=== PATIENT | male | born 1960 | race Caucasian/White ===

== ENCOUNTER 2018-11-30 12:04 | Inpatient (IN) | payer OTHER ==
[~2018-11-30] VITALS: Ht 177.8 cm; Wt 89.8 kg
[~2018-11-30 12:04] MED LIST: AUGMENTIN 875875 MG PO; BACTRIM DS TAB1 EACH PO; BACTROBAN CREAM30 G1 TOP; CEPHALEXIN 500500 M3 PO; COZAAR 25 MG TA25 M1 PO; HUMULINR100 SUBQ; HYDROCODONE-AP1 EAC6 PO; LEVEMIR SUBQ; NOVOLOG100 UNIT/M SUBQ; ROCEPHIN 11 GM/1001 IVPB
[2018-11-30 12:08] VITALS: BP 208/92
[2018-11-30] MEDS ORDERED: LISINOPRIL2.5 MG PO (12:15)
[2018-11-30] MEDS ORDERED: TRESIBA100 UNIT/1 SUBQ (12:15)
[2018-11-30 12:35] LABS: ABSOLUTE BASOPHILS 0.1 thou/uL (0.0-0.2); ABSOLUTE LYMPHOCYTES 1.1 thou/uL (0.8-5.3); ABSOLUTE MONOCYTES 0.3 thou/uL (0.0-1.2); ABSOLUTE NEUTROPHILS 4.8 thou/uL (1.6-8.1); BASOPHILS 0.8 %; EOSINOPHILS 0.8 %; HEMATOCRIT 37.8 % (42.0-52.0); HEMOGLOBIN 12.9 gm/dL (14.0-18.0); LYMPHOCYTES 17.1 %; MCH 28.8 pg (26.0-34.0); MCHC 34.1 g/dL (28.0-37.0); MCV 84.4 fL (80.0-100.0); MONOCYTES 4.8 %; MPV 7.5 fl. (7.2-11.1); NUCLEATED RBCS 0 /100WBC; PLATELET COUNT* 284 thou/uL (150-400); POLYS 76.5 %; RBC 4.48 mil/uL (4.50-6.00); RDW-CV 13.1 % (10.5-14.5); WBC 6.2 thou/uL (4.0-11.0)
[2018-11-30 12:43] LABS: CALCIUM 9.3 mg/dL (8.5-10.1); CREATININE 1.4 mg/dL (0.6-1.3); POTASSIUM 4.7 mmol/L (3.5-5.1); PROTIME 9.9 Seconds (9.20-11.50)
[2018-11-30 12:47] LABS: ALBUMIN 3.8 g/dL (3.4-5.0); TOTAL BILIRUBIN 0.4 mg/dL (<0.1-1.0); TOTAL PROTEIN 7.6 g/dL (6.4-8.2)
[2018-11-30] MEDS ORDERED: ASA81BEC PO (13:32)
[2018-11-30] MEDS ORDERED: FISH OIL 1,0001 EAC9 PO (13:32)
[2018-11-30 15:07] VITALS: BP 150/76
[2018-11-30 15:51] LABS: HEMOGLOBIN 12.9 gm/dL (14.0-18.0)
[2018-11-30 16:00] VITALS: BP 159/68
[2018-11-30 19:50] VITALS: BP 176/75
[2018-12-01 00:40] VITALS: BP 176/83
[2018-12-01 04:48] LABS: CHOLESTEROL 162 mg/dL (<200); HDL CHOLESTEROL 53 mg/dL (>40); LDL CHOLESTEROL 91 mg/dL (<100); TC:HDL 3.1 Ratio (Not establshd); TRIGLYCERIDE 91 mg/dL (<150); VLDL 18 mg/dL (<40)
[2018-12-01 04:51] LABS: SERUM ASSESSMENT Clear
[2018-12-01 05:56] VITALS: BP 105/63
--- NOTE | 2018-12-01 06:48 | NUR ---
PT CARE ASSUMED AT 1930. SAT MAINTAINED IN RA. ALERT AND ORIENTED X 4. CALL LIGHT WITHIN REACH AND BED IN LOW POSITION. DENIES PAIN AND SOB. HOURLY ROUNDING DONE FOR PT SAFETY.
[2018-12-01 08:00] VITALS: BP 200/98
[2018-12-01] MEDS ORDERED: NORVASC10 MG PO (11:17)
[2018-12-01] MEDS ORDERED: MICROZIDE12.5 MG PO (11:19)
[2018-12-01] MEDS ORDERED: LIPITOR40 MG PO (11:22)
[2018-12-01 11:30] VITALS: BP 166/81
[2018-12-01] MEDS ORDERED: NEURONTIN300 MG PO (16:50)
[2018-12-01 16:54] VITALS: BP 166/81
[2018-12-01 17:13] LABS: URINE BILIRUBIN NEGATIVE (Negative); URINE BLOOD NEGATIVE (Negative); URINE CLARITY CLEAR; URINE COLOR YELLOW; URINE GLUCOSE-RANDOM 3+ (Negative); URINE KETONES NEGATIVE (Negative); URINE LEUKOCYTES NEGATIVE (Negative); URINE NITRITE NEGATIVE (Negative); URINE PROTEIN NEGATIVE (Negative); URINE UROBILINOGEN 0.2 E.U./dl (0.2-1.0)
--- NOTE | 2018-12-01 17:23 | NUR ---
RECEIVED REPORT FROM LAURE OHARA. ASSUMED CARE OF PT AROUND 0730. PT A&O X4, A BIT ANXIOUS AND READY TO LEAVE THE HOSPITAL. VSS. BP MEDS GIVEN FOR HYPERTENSION. CHILD HEALTH ASSOCIATE IN PLACE TRACING SR WITH NO CHANGES THIS SHIFT. AM ASSESSMENT AND VITALS COMPLETED CHARTED. PT SEEN BY NEUROLOGY - NEUROLOGY CLEARED PT TO GO HOME WITH A F/U IN 1-2 WEEKS. DISCHARGE COMPELTED CHARTED. DISCHARGE SUMMARY, CARE NOTES AND SCRIPTS GONE OVER WITH PT, PT COMMUNICATES UNDERSTANDING. IV AND CHILD HEALTH ASSOCIATE REMOVED. ALL BELONGINGS GATHERED AND LEAVING WITH PT. PT TO LEAVE UNIT IN WC WITH NURSING STAFF. PT TO DRIVE HIMSELF HOME. WILL CONTINUE TO MONITOR PT TILL HE IS READY TO LEAVE THE UNIT.
[2018-12-02 02:05] LABS: GLYCOHEMOGLOBIN (HGB A1C) 10.1 % (4.8-5.6)
--- NOTE | 2018-12-02 16:21 | EKG ---
[place] [address] ELECTROCARDIOGRAM REPORT Name: ROXANNE BENAVIDEZ Room: [address] IN .R.#: [id number] Admission: 11/30/18 Attend Phys: Meme Lazo Discharge: 12/01/18 Date of : 58 Report #: [id number] THIS REPORT FOR: //name// 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
== END 2018-12-01 17:35 | disposition home or self-care (01) | DRG 552 ==
LOC: M.ERS 12:04 → M.TBA-ER 14:07 → M.2W 14:07
PROVIDERS: Emergency Medicine Emergency Medical Services; ADMIT Internal Medicine
DX: M48.02 Spinal stenosis, cervical region (principal); G45.9 Transient cerebral ischemic attack, unspecified; N17.9 Acute kidney failure, unspecified; G99.2 Myelopathy in diseases classified elsewhere; I16.0 Hypertensive urgency; I10 Essential (primary) hypertension; E78.5 Hyperlipidemia, unspecified; I25.10 Atherosclerotic heart disease of native coronary artery without angina pectoris; M54.12 Radiculopathy, cervical region; E11.65 Type 2 diabetes mellitus with hyperglycemia; Z83.3 Family history of diabetes mellitus; Z79.82 Long term (current) use of aspirin; Z79.899 Other long term (current) drug therapy

== ENCOUNTER 2019-03-24 16:14 | Inpatient (IN) | payer OTHER ==
[~2019-03-24] VITALS: Ht 180.3 cm; Wt 106.2 kg
--- NOTE | ~2019-03-24 | OP ---
[address] [address] OPERATIVE REPORT Name: ROXANNE BENAVIDEZ Room: [address] IN M.R.#: [id number] Admission: 03/24/19 Attend Phys: Mason Bull MD Discharge: Date of : 58 Report #: [id number] THIS REPORT FOR: //name// cc: MELBA Rodriguez family physician/PCP MELBA Rodriguez family physician/PCP ~ THIS REPORT FOR: //name// CC: Mason REILLY physician/PCP DATE OF SERVICE: 03/31/2019 SURGEON: Fer Sequeira DPM PREOPERATIVE DIAGNOSIS: Osteomyelitis with deep tissue infection, left second metatarsal. POSTOPERATIVE DIAGNOSIS: Osteomyelitis with deep tissue infection, left second metatarsal. PROCEDURE: Metatarsectomy left second metatarsal in toto, amputation left third toe at MTP joint, and surgical wound debridement. ANESTHESIA: General LMA. INJECTABLES: 30 mL of a 1:1 mixture of 0.5% Marcaine plain and 1% lidocaine plain. ESTIMATED BLOOD LOSS: Roughly 2 mL. SPECIMENS: Left second metatarsal and left third toe. CULTURES: 1. Bone, left distal second metatarsal, aerobic and anaerobic. 2. Soft tissue, left foot, aerobic and anaerobic. HEMOSTASIS: Left ankle pneumatic tourniquet at 275 mmHg. COMPLICATIONS: None. DESCRIPTION OF PROCEDURE: The patient was brought to the OR and a local anesthetic block was given to the left foot. The extremity was prepped and draped aseptically. General LMA anesthesia was administered. The extremity was exsanguinated with inflation of the tourniquet. The second metatarsal was disarticulated at the metatarsocuneiform joint and a portion of bone from the metatarsal head was sent for aerobic and anaerobic bone cultures. The bone to [address] [address] OPERATIVE REPORT Name: ROXANNE BENAVIDEZ Room: [address]#: [id number] Admission: 03/24/19 Attend Phys: Mason Bull MD Discharge: Date of : 58 Report #: [id number] the metatarsal was discolored, soft, and appeared nonviable. The surrounding soft tissue was grossly infected, necrotic with some drops of purulence to the tissue along the plantar aspect of the second metatarsal. The third digit had drops of purulence in the soft tissue surrounding it, which was entirely necrotic. I disarticulated the third toe at the metatarsophalangeal joint and debrided infected tissue around the region including the joint capsule and tissue overlying the third metatarsal. The first metatarsal and first MTP joint were not directly visible, although there is a plantar wound that communicates from the plantar aspect of that joint, which was the original wound that caused the deep tissue infection. I used electrocautery and flushed the wound with 1 liter of sterile saline with bacitracin irrigant. The wound was dried and packed with Aquacel Ag and covered with ABDs, Kerlix, and Larry bandage. The tourniquet was deflated. The patient left the OR with no active bleeding or complications noted. By: 0653 0706Fer Sequeira DPM /freida
--- NOTE | ~2019-03-24 | OP ---
[address] [address] OPERATIVE REPORT Name: ROXANNE BENAVIDEZ Room: [address] IN M.R.#: [id number] Admission: 03/24/19 Attend Phys: Mason Bull MD Discharge: Date of : 58 Report #: [id number] THIS REPORT FOR: //name// cc: MELBA Rodriguez family physician/PCP MELBA Rodriguez family physician/PCP ~ THIS REPORT FOR: //name// CC: Mason REILYL physician/PCP DATE OF SERVICE: 03/25/2019 SURGEON: Fer Sequeira DPM PREOPERATIVE DIAGNOSIS: Deep tissue infection with abscess and possible osteomyelitis, left foot. POSTOPERATIVE DIAGNOSIS: Deep tissue infection with abscess and possible osteomyelitis, left foot. PROCEDURE: 1. Incision and drainage, left foot. 2. Amputation, left second toe at MTP joint. 3. Intraoperative soft tissue debridement of infected wound. ANESTHESIA: General LMA. INJECTABLES: 30 mL of a 1:1 mixture of 0.5% Marcaine plain and 1% lidocaine plain. ESTIMATED BLOOD LOSS: Minimal. HEMOSTASIS: Left ankle pneumatic tourniquet at 275 mmHg. SPECIMENS: Left second toe. CULTURES: Soft tissue, left foot, aerobic and anaerobic. SURGICAL COMPLICATIONS: None. DESCRIPTION OF PROCEDURE: The patient was brought to the OR and placed on the table supine with induction of general LMA anesthesia. A well-padded left ankle pneumatic tourniquet was placed and a local anesthetic block was given to the left foot. The extremity was prepped and draped with exsanguination and inflation of the tourniquet. A #10 scalpel was used to create a dorsal incision over the left first intermetatarsal space extending through the interdigital [address] [address] OPERATIVE REPORT Name: ROXANNE BENAVIDEZ Room: [address] IN [facility]#: [id number] Admission: 03/24/19 Attend Phys: Mason Bull MD Discharge: Date of : 58 Report #: [id number] space to the plantar first intermetatarsal space. Roughly 2 mL of purulent fluid were expressed and the intraoperative wound was grossly necrotic. The tissue surrounding the second metatarsophalangeal joint was severely necrotic and infected and the joint was visible. The articular surface of the second metatarsal was intact with no signs of necrosis or osteolysis. I disarticulated the second toe since it was grossly infected with no healthy tissue at any aspect of the toe or metatarsophalangeal joint. I performed extensive soft tissue debridement of the operative wound to excise subcutaneous soft tissue, fat, tendon and joint capsule material. A logistics service representative portion was sent for aerobic and anaerobic tissue culture. Electrocautery was utilized for intraoperative hemostasis. I did not directly visualize the first MTP joint, as a joint capsule was intact. There was a wound to the plantar aspect of that joint, which communicated to the plantar aspect of the first metatarsophalangeal joint and then tunneled towards the first intermetatarsal space proximally and then laterally along the distal second and third metatarsophalangeal joints. The wound was flushed with sterile saline, dried and open, packed with Aquacel Ag and covered with ABDs, Kerlix and Larry wrap. The tourniquet was deflated with normal vascular return. The patient left the OR with no active bleeding or complications. By: 0757 0809Fer Sequeira DPM /freida
--- NOTE | ~2019-03-24 | CON ---
[address] [address] CONSULTATION Name: ROXANNE BENAVIDEZ Room: [address] IN M.R.#: [id number] Admission: 03/24/19 Attend Phys: Mason Bull MD Discharge: Date of : 58 Report #: [id number] THIS REPORT FOR: //name// cc: MELBA Rodriguez family physician/PCP MELBA Rodriguez family physician/PCP ~ THIS REPORT FOR: //name// CC: Mason Bull [facility] physician/PCP DATE OF SERVICE: 04/01/2019 CHIEF COMPLAINT: Postoperative day #1, for resection, left second metatarsal and third toe for osteomyelitis and deep tissue infection. Surgical pathology is pending. Surgical pathology from the first surgery showed osteomyelitis to the left second toe with a clear disarticulation margin. He is on parenteral Unasyn with the good tolerance. He has been afebrile, good appetite. Low-grade pain, he has remained nonweightbearing to the foot. LABORATORY DATA: WBC of 11.2, RBC 2.81, hemoglobin 8.0, hematocrit 23.8, platelets 642, BUN 32, creatinine 2.2, glucose 158. Albumin of 1.8. PHYSICAL EXAMINATION: Temperature of 100.7, pulse 90, respirations 18, blood pressure of 154/65. PHYSICAL EXAMINATION: There is some sanguinous saturation to the foot bandage. Upon removal of the intraoperative wound, has a red saturated tissue with no gross necrosis. The third metatarsal with no visible lysis or necrosis. The first metatarsophalangeal joint remains covered with the joint capsule tissue. The inflammation substantially decreased and low grade at this point. No pallor, cyanosis, or signs of acute vascular embarrassment. Pinpoint bleeding to the wound bed during the bandage change. IMPRESSION: Osteomyelitis with deep tissue infection, left foot; type 2 diabetes mellitus. PLAN: The wound was irrigated, dried and packed with Aquacel Ag and covered with ABDs, Kerlix, and Larry bandages. The patient to remain strictly nonweightbearing to the foot and elevate. He will require a wound vacuum as outpatient and straighten that and remain nonweightbearing. Possible, he will likely receive his parenteral antibiotics [place] [address] CONSULTATION Name: ROXANNE BENAVIDEZ Room: [address]#: [id number] Admission: 03/24/19 Attend Phys: Mason Bull MD Discharge: Date of : 58 Report #: [id number] Hospital. I can follow up with him in my office as outpatient for wound care or perhaps [facility]. By: 1810 48Fer Sequeira DPM /nt
--- NOTE | ~2019-03-24 | CON ---
[address] [address] CONSULTATION Name: ROXANNE BENAVIDEZ Room: [place] [address] ADM IN M.R.#: [id number] Admission: 03/24/19 Attend Phys: Mason Bull MD Discharge: Date of : 58 Report #: [id number] THIS REPORT FOR: //name// cc: MELBA Rodriguez family physician/PCP MELBA Rodriguez family physician/PCP ~ THIS REPORT FOR: //name// CC: Mason Bull [facility] physician/PCP DATE OF SERVICE: 03/27/2019 CHIEF COMPLAINT: Status post incision and drainage, left foot with second toe amputation for deep tissue infection and likely osteomyelitis. Soft tissue surgical cultures grew Bacteroides and E. coli. Dr. Diamond switched his antibiotics to Unasyn. He has been afebrile, good appetite, denies foot pain. No new labs for review. Surgical pathology shows osteomyelitis of the left second toe with a clear disarticulation margin. PHYSICAL EXAMINATION: Persistent moderate inflammation to the left dorsal foot surrounding the surgical wound. The second metatarsal is visible and is surrounded by fibronecrotic tissue with no healthy granulation or viable tissue. The foot is warm with palpable pedal pulses and no signs of acute vascular embarrassment. I cannot visualize the first or third metatarsals as they are covered with a capsular material. IMPRESSION: Deep tissue infection with likely osteomyelitis, left foot, type 2 diabetes mellitus. PLAN: I discussed with the patient likelihood of performing a second ray resection. Second metatarsal has a yellowish contreras coloration and is likely relatively avascular at this point. I am favoring resecting the second metatarsal at the proximal aspect and further intraoperative wound debridement. I explained to the patient, he may require a transmetatarsal amputation in the future, pending this clinical course. Case was discussed with Dr. Diamond. The wound was cleansed and redressed with sterile gauze, ABDs, Kerlix, and Larry. By: 1211 1259Fer Sequeira DPM /freida
--- NOTE | ~2019-03-24 | CON ---
[address] [address] CONSULTATION Name: ROXANNE BENAVIDEZ Room: [place] [address] ADM IN M.R.#: [id number] Admission: 03/24/19 Attend Phys: Mason Bull MD Discharge: Date of : 58 Report #: [id number] THIS REPORT FOR: //name// cc: MELBA Rodriguez family physician/PCP MELBA Rodriguez family physician/PCP ~ THIS REPORT FOR: //name// CC: Mason Bull [facility] physician/PCP DATE OF SERVICE: 03/26/2019 CHIEF COMPLAINT: Postoperative day #1 for incision and drainage, left foot abscess with second toe amputation. Surgical tissue cultures pending. He is on parenteral vancomycin and ceftriaxone with good tolerance. He feels well, he has been afebrile with no chills and malaise. He says he feels much better today. Minimal pain, although he has profound diabetic sensory peripheral neuropathy. He is scheduled for arterial duplex Doppler later this afternoon. Blood cultures negative x 2. LABORATORY DATA: WBC 14.4, RBC 3.16, hemoglobin 9.0, hematocrit 26.6, platelets 276. BUN 40, creatinine 2.6, glucose 271. PHYSICAL EXAMINATION: Inflammation substantially decreased with no zach erythema to the left foot. The majority of the second metatarsal is exposed with no zach lysis or necrosis. Surrounding soft tissue is spongy with some fibronecrotic tissue, no granulation. There is no fluctuance or crepitation. There is no pallor or cyanosis to the foot, no signs of acute vascular embarrassment. The adjacent first and third metatarsals were covered with capsular tissues and not visible. No left popliteal adenopathy or calf pain. No Homans or Lau sign either lower extremity. IMPRESSION: Deep tissue infection with possible osteomyelitis, left foot, complicated by diabetes mellitus with peripheral neuropathy. PLAN: The wound was thoroughly cleansed and packed with Iodosorb, cadexomer iodine, and covered with 4 x 4s, ABDs, Kerlix and Larry bandage. The patient to remain nonweightbearing to the extremity. He will require a wound vacuum as an outpatient as well as a knee walker for offloading. By: 1627 [id number] Sequeira DPM /freida
--- NOTE | ~2019-03-24 | CON ---
[address] [address] CONSULTATION Name: ROXANNE BENAVIDEZ Room: [place] [address] ADM IN M.R.#: [id number] Admission: 03/24/19 Attend Phys: Mason Bull MD Discharge: Date of : 58 Report #: [id number] THIS REPORT FOR: //name// cc: MELBA Rodriguez family physician/PCP MELBA Rodriguez family physician/PCP ~ THIS REPORT FOR: //name// CC: Mason Bull [facility] physician/PCP DATE OF SERVICE: 03/28/2019 CHIEF COMPLAINT: Postoperative incision and drainage, left foot for deep tissue infection. He is on parenteral vancomycin and ceftriaxone. Surgical soft tissue cultures growing gram-negative rods, gram-positive cocci, gram-positive rods. He has been afebrile with stable vitals. Low-grade pain controlled with medication, good appetite. Blood cultures negative x 2. Arterial duplex Doppler ultrasound showed fairly normal waveforms throughout bilateral lower extremities with no signs of arterial stenosis. LABORATORY DATA: WBC 12.4, RBC 3.10, hemoglobin 8.9, hematocrit 26.3, platelets 287. BUN 46, creatinine 2.9, glucose 176. PHYSICAL EXAMINATION: Decreased inflammation to the postoperative foot with large open wound with fibro-necrotic tissue and exposed second metatarsal. I cannot determine whether the metatarsal is necrotic at this point. There is no healthy granulation to the intraoperative wound bed. There is no pallor, cyanosis or signs of acute arterial embarrassment. The foot is warm with palpable dorsalis pedis and posterior tibial pulses. There is resolving inflammation to the dorsal lateral foot consistent with resolving cellulitis. The adjacent first and third metatarsals are not visible since they are covered with their joint capsule tissue. IMPRESSION: Deep tissue infection, osteomyelitis, type 2 diabetes mellitus. PLAN: The wound was lavaged, dried and redressed with 4 x 4s, ABDs, Kerlix and Larry bandage. The patient will likely require further surgical debridement in the future, but I would like to wait until the infection dissipates and there is improvement to the intraoperative soft tissue wound bed. He will likely require resection of most of the second metatarsal with further subcutaneous wound debridement and perhaps a partial primary closure of the dorsal incision. This would be best accomplished in a week or two [place] [address] CONSULTATION Name: ROXANNE BENAVIDEZ Room: [address] IN [facility]#: [id number] Admission: 03/24/19 Attend Phys: Mason Bull MD Discharge: Date of : 58 Report #: [id number] topical wound care. The patient remained nonweightbearing to the extremity, rest and elevate. Maximize glycemic control and nutrition. By: 0759 0825Dalavern Sequeira DPM /freida
[~2019-03-24 16:14] MED LIST changes: +ASA81BEC PO; +FISH OIL 1,0001 EAC9 PO; +LIPITOR40 MG PO; +LISINOPRIL2.5 MG PO; +MICROZIDE12.5 MG PO; +NEURONTIN300 MG PO; +NORVASC10 MG PO; +TRESIBA100 UNIT/1 SUBQ
[2019-03-24 16:28] VITALS: BP 181/85
[2019-03-24 17:23] LABS: HEMATOCRIT 30.5 % (42.0-52.0); HEMOGLOBIN 10.3 gm/dL (14.0-18.0); MCH 28.4 pg (26.0-34.0); MCHC 33.9 g/dL (28.0-37.0); MCV 83.8 fL (80.0-100.0); MPV 8.1 fl. (7.2-11.1); NUCLEATED RBCS 0 /100WBC; PLATELET COUNT* 304 thou/uL (150-400); RBC 3.64 mil/uL (4.50-6.00); RDW-CV 12.6 % (10.5-14.5); WBC 17.4 thou/uL (4.0-11.0)
[2019-03-24 17:33] LABS: APTT 29.9 Seconds (25.0-31.3); INR 1.1; PROTIME 10.8 Seconds (9.20-11.50)
[2019-03-24 17:38] LABS: CALCIUM 8.6 mg/dL (8.5-10.1); POTASSIUM 4.7 mmol/L (3.5-5.1)
[2019-03-24 17:44] LABS: ALBUMIN 2.8 g/dL (3.4-5.0); TOTAL BILIRUBIN 0.9 mg/dL (<0.1-1.0); TOTAL PROTEIN 7.6 g/dL (6.4-8.2)
[2019-03-24 17:49] LABS: ABSOLUTE LYMPHOCYTES 0.3 thou/uL (0.8-5.3); ABSOLUTE MONOCYTES 0.3 thou/uL (0.0-1.2); ABSOLUTE NEUTROPHILS 16.7 thou/uL (1.6-8.1); PLATELET ESTIMATE ADEQUATE
[2019-03-24 18:37] LABS: CK-MB MASS 1.4 ng/mL (<0.5-3.6); PHOSPHORUS* 2.9 mg/dL (2.5-4.9)
[2019-03-24 21:00] VITALS: BP 139/67
[2019-03-24 21:18] VITALS: BP 136/62
[2019-03-25 00:38] VITALS: BP 140/67
[2019-03-25 04:00] VITALS: BP 137/77
[2019-03-25 04:58] LABS: ABSOLUTE BASOPHILS 0.1 thou/uL (0.0-0.2); ABSOLUTE LYMPHOCYTES 0.8 thou/uL (0.8-5.3); ABSOLUTE MONOCYTES 0.8 thou/uL (0.0-1.2); ABSOLUTE NEUTROPHILS 14.8 thou/uL (1.6-8.1); BASOPHILS 0.4 %; EOSINOPHILS 0.1 %; HEMATOCRIT 27.6 % (42.0-52.0); HEMOGLOBIN 9.3 gm/dL (14.0-18.0); LYMPHOCYTES 4.5 %; MCH 28.2 pg (26.0-34.0); MCHC 33.8 g/dL (28.0-37.0); MCV 83.4 fL (80.0-100.0); MPV 8.3 fl. (7.2-11.1); NUCLEATED RBCS 0 /100WBC; PLATELET COUNT* 292 thou/uL (150-400); RDW-CV 12.5 % (10.5-14.5); WBC 16.5 thou/uL (4.0-11.0)
[2019-03-25 05:38] LABS: CALCIUM 7.6 mg/dL (8.5-10.1); CREATININE 1.8 mg/dL (0.6-1.3); POTASSIUM 4.1 mmol/L (3.5-5.1)
[2019-03-25 08:00] VITALS: BP 117/67
[2019-03-25 11:03] VITALS: BP 151/73
--- NOTE | 2019-03-25 11:37 | EKG ---
[place] [address] ELECTROCARDIOGRAM REPORT Name: ROXANNE BENAVIDEZ Room: [place] [address] ADM IN ..#: [id number] Admission: 03/24/19 Attend Phys: Mason Bull, Discharge: Date of : 58 Date of Service: 03/24/19 1834 Report #: [id number] THIS REPORT FOR: //name// [facility] ED Test Date: 2019-03-24 Test Time: 18:34:33 Pat Name: ROXANNE BENAVIDEZ Department: Room: [facility] Gender: M Carrier Operator: DINORA : 1960 Requested By: Sophia Velez Order Number: [id number] MD: Rick Zafar Measurements Intervals [place] Rate: 109 P: 36 MO: 152 QRS: 33 QRSD: 111 T: 30 QT: 329 QTc: 444 Interpretive Statements Sinus tachycardia Baseline wander in lead(s) V6 Compared to ECG 11/30/2018 12:09:54 Sinus rate has increased Electronically Signed On 03-25-2019 11:36:07 DROP WORKER by Rick Zafar [email or web address] <ELECTRONICALLY SIGNED> By: Rick Zafar MD, [facility] 03/25/19 1136 1834 1834 Rick Zafar MD, [facility] /EPI
[2019-03-25 16:24] VITALS: BP 164/73
--- NOTE | 2019-03-25 19:58 | 2DMMODE ---
[place] [address] 2 D/M-MODE ECHOCARDIOGRAM Name: ROXANNE BENAVIDEZ Room: [facility] ADM IN [facility]#: [id number] Admission: 03/24/19 Attend Phys: Mason Bull, Discharge: Date of : 58 Date of Service: 03/25/[address] Report #: [id number] THIS REPORT FOR: cc: FAM - No family physician/PCP FAM - No family physician/PCP Mikie Kathleen MD [facility] ~ APPROVED REPORT Study performed: 03/25/2019 15:28:52 EXAM: Comprehensive 2D, Doppler, and color-flow Echocardiogram Patient Location: In-Patient Room #: 227 BSA: 2.12 HR: 113 bpm BP: 151/73 mmHg Other Information Study Quality: Good Indications CAD 2D Dimensions IVSd: 10.54 (7-11mm) LVOT Diam: 20.11 (18-24mm) LVDd: 43.54 mm PWd: 10.16 (7-11mm) Ascending Ao: 28.42 (22-36mm) LVDs: 29.25 (25-40mm) Aortic Root: 25.57 mm Volumes Left Atrial Volume (Systole) LA ESV Index: 12.80 mL/m2 Aortic Valve AoV Peak Ke.: 1.53 m/s AO Peak Gr.: 9.41 mmHg LVOT Max P.17 mmHg AO Mean Gr.: 6.08 mmHg LVOT Mean P.18 mmHg LVOT Max V: 1.24 m/s AO V2 VTI: 22.94 cm LVOT Mean V: 0.83 m/s MILEY (VTI): 3.11 cm2 LVOT V1 VTI: 22.43 [place] [address] 2 D/M-MODE ECHOCARDIOGRAM Name: ROXANNE BENAVIDEZ Room: [address] IN .R.#: [id number] Admission: 03/24/19 Attend Phys: Mason Bull, Discharge: Date of : 58 Date of Service: 03/25/191956 Report #: [id number] E/A Ratio: 0.73 MV Decel. Time: 171.97 ms MV E Max Ke.: 0.85 m/s MV PHT: 49.87 ms MVA (PHT): 4.41 cm2 TDI E/Lateral E': 8.50 E/Medial E': 8.50 Medial E' Ke.: 0.10 m/s Lateral E' Ke.: 0.10 m/s Pulmonary Valve PV Peak Ke.: 1.55 m/s PV Peak Gr.: 9.56 mmHg Tricuspid Valve RAP Estimate: 5.00 mmHg TR Peak Gr.: 35.19 mmHg RVSP: 40.19 mmHg PA Pressure: 40.19 mmHg Left Ventricle The left ventricle is normal size. There is normal LV segmental wall motion. There is normal left ventricular wall thickness. Left ventricular systolic function is normal. LVEF is 60-65%. Grade I - abnormal relaxation pattern. Right Ventricle The right ventricle is normal size. The right ventricular systolic function is normal. Atria The left atrium size is normal. The right atrium size is normal. Aortic Valve The aortic valve is normal in structure. No aortic regurgitation is present. There is no aortic valvular stenosis. Mitral Valve The mitral valve is normal in structure. There is no mitral valve regurgitation noted. No evidence of mitral valve stenosis. Tricuspid Valve The tricuspid valve is normal in structure. Mild tricuspid regurgitation. The RVSP is 40-45 [place] [address] 2 D/M-MODE ECHOCARDIOGRAM Name: ROXANNE BENAVIDEZ Room: [address] IN [facility]#: [id number] Admission: 03/24/19 Attend Phys: Mason Bull, Discharge: Date of : 58 Date of Service: 03/25/191956 Report #: [id number] The pulmonary valve is normal in structure. There is no pulmonic valvular regurgitation. Great Vessels The aortic root is normal in size. IVC is normal in size and collapses >50% with inspiration. Pericardium There is no pericardial effusion. <Conclusion> The left ventricle is normal size. There is normal left ventricular wall thickness. Left ventricular systolic function is normal. LVEF is 60-65%. Grade I - abnormal relaxation pattern. Mild tricuspid regurgitation. The RVSP is 40-45 mmHg. IVC is normal in size and collapses >50% with inspiration. <ELECTRONICALLY SIGNED> By: Mikie Kathleen MD, FACC 03/25/191956 56 56 Mikie Kathleen MD, FACC /INF
[2019-03-25 20:00] VITALS: BP 135/56
[2019-03-26] VITALS: BP 107/56
[2019-03-26 04:00] VITALS: BP 124/70
[2019-03-26 06:13] LABS: ABSOLUTE LYMPHOCYTES 0.8 thou/uL (0.8-5.3); ABSOLUTE MONOCYTES 0.8 thou/uL (0.0-1.2); ABSOLUTE NEUTROPHILS 12.8 thou/uL (1.6-8.1); BASOPHILS 0.2 %; HEMATOCRIT 26.6 % (42.0-52.0); LYMPHOCYTES 5.5 %; MCH 28.6 pg (26.0-34.0); MCV 84.2 fL (80.0-100.0); MONOCYTES 5.8 %; MPV 8.2 fl. (7.2-11.1); NUCLEATED RBCS 0 /100WBC; PLATELET COUNT* 276 thou/uL (150-400); POLYS 88.5 %; RBC 3.16 mil/uL (4.50-6.00); WBC 14.4 thou/uL (4.0-11.0)
[2019-03-26 06:23] LABS: ALBUMIN 2.1 g/dL (3.4-5.0); ALKALINE PHOSPHATASE 98 U/L (46-116); ANION GAP 16 mmol/L (7-16); BUN 40 mg/dL (7-18); CALCIUM 7.5 mg/dL (8.5-10.1); CHLORIDE 101 mmol/L (98-107); CHOLESTEROL 70 mg/dL (<200); CO2 17 mmol/L (21-32); CREATININE 2.6 mg/dL (0.6-1.3); GLUCOSE 271 mg/dL (70-99); HDL CHOLESTEROL 11 mg/dL (>40); LDL CHOLESTEROL 29 mg/dL (<100); POTASSIUM 4.1 mmol/L (3.5-5.1); SGOT 21 U/L (15-37); SGPT 20 U/L (30-65); SODIUM 134 mmol/L (136-145); TC:HDL 6.4 Ratio (Not establshd); TOTAL BILIRUBIN 0.3 mg/dL (<0.1-1.0); TOTAL PROTEIN 6.4 g/dL (6.4-8.2); TRIGLYCERIDE 152 mg/dL (<150); VLDL 30 mg/dL (<40)
[2019-03-26 06:33] LABS: SERUM ASSESSMENT Clear
[2019-03-26 08:00] VITALS: BP 110/65
--- NOTE | 2019-03-26 09:13 | CON ---
[address] [address] CONSULTATION Name: ROXANNE BENAVIDEZ Room: [place] [address] ADM IN Meme.Declan.#: [id number] Admission: 03/24/19 Attend Phys: Mason Bull MD Discharge: Date of : 58 Report #: [id number] THIS REPORT FOR: //name// cc: MELBA Rodriguez family physician/PCP MELBA - Jennifer family physician/PCP ~ THIS REPORT FOR: //name// CC: Mason REILLY physician/PCP CARDIOLOGY CONSULTATION INDICATION: Elevated troponin. HISTORY OF PRESENT ILLNESS: The patient is a 58-year-old gentleman with peripheral vascular disease, who presented to the Emergency Room with nonhealing foot ulcer. He has been febrile. He has been treated for sepsis. He is currently on IV antibiotics. He remains moderately febrile. In this setting, his troponin was 0.12. The patient has a history of coronary artery disease with percutaneous coronary intervention in 10/2002 at [facility]. He has had no subsequent intervention. He denies any history of myocardial infarction or congestive heart failure. Presently, he denies shortness of breath. He is not having chest pain. He is without other cardiac complaint. PAST MEDICAL HISTORY: 1. Coronary artery disease with remote percutaneous coronary intervention as outlined above. 2. Hypertension. 3. Type 2 diabetes mellitus. 4. History of patellar fracture in 1985. 5. Rib fracture in 2014. 6. Foot surgery last year. SOCIAL HISTORY: The patient quit smoking remotely. Drinks alcohol twice weekly. He is . FAMILY HISTORY: The patient's father of a heart attack at 48. He has multiple siblings, none of whom have heart disease. ALLERGIES: None. HOME MEDICATIONS: Tresiba 15 units at bedtime, lisinopril 40 mg p.o. daily, aspirin 81 mg daily, fish oil 1000 mg daily, gabapentin 300 mg t.i.d., regular [place] [address] CONSULTATION Name: ROXANNE BENAVIDEZ Room: [address] IN [facility]#: [id number] Admission: 03/24/19 Attend Phys: Mason Bull MD Discharge: Date of : 58 Report #: [id number] REVIEW OF SYSTEMS: A 14-point review of systems is positive for fever, dyspnea, type 2 diabetes and he wears glasses without acute visual change. Otherwise, 14-point review of systems unremarkable. PHYSICAL EXAMINATION: VITAL SIGNS: Blood pressure 117/67, pulse 103. GENERAL: This is a pleasant gentleman in no distress. Mood and affect appropriate. HEENT: Head is normocephalic, atraumatic. Extraocular muscles intact. Mucous membranes are moist. NECK: Shows no jugular venous distention. There are no carotid bruits. CHEST: Reveals clear lung zapata. CARDIOVASCULAR: Reveals a regular rhythm without gallop or murmur. ABDOMEN: Reveals normal bowel sounds. The abdomen is soft and nontender. EXTREMITIES: Shows trace ankle edema. SKIN: Dry. LABORATORY AND DIAGNOSTIC DATA: A 12-lead EKG shows sinus tachycardia without significant ST or T-wave abnormality. Chest x-ray shows no acute cardiopulmonary abnormality. Labs are reviewed. White blood cell count 16.5, hemoglobin 9.3, platelet count 292,000. Coags within normal limits. Sodium 133, potassium 4.1, chloride 100, bicarbonate 18, BUN 34, creatinine 1.8, serum glucose 231. Troponin 0.12. IMPRESSION AND RECOMMENDATIONS: 1. Elevated troponin, likely due to type 2 myocardial infarction with strain from sepsis and febrile illness. Doubt this represents acute coronary syndrome in the absence of any symptoms. Would obtain echocardiogram and follow clinically at this point in time. We would recommend outpatient stress testing. 2. Coronary artery disease. I would recommend daily aspirin. We would recommend risk factor modification including blood pressure control and checking a fasting lipid profile and treating for LDL cholesterol of 70 or less. 3. Hypertension. Blood pressure appears to be adequately controlled presently. We will make adjustments as needed. 4. Foot wound with surgery required. There is no cardiac contraindication to proceeding with surgery at this time. 5. Diabetes per primary physician. <ELECTRONICALLY SIGNED> By: Mikie Kathleen MD, FACC 03/26/19 0913 1428 2319Mikie Kathleen MD, FACC /nt
--- NOTE | 2019-03-26 11:59 | CON ---
[address] [address] CONSULTATION Name: ROXANNE BENAVIDEZ Room: [place] [address] ADM IN M.R.#: [id number] Admission: 03/24/19 Attend Phys: Mason Bull MD Discharge: Date of : 58 Report #: [id number] THIS REPORT FOR: //name// cc: MELBA Rodriguez family physician/PCP MELBA Rodriguez family physician/PCP ~ THIS REPORT FOR: //name// CC: Mason REILLY physician/PCP DATE OF SERVICE: 03/25/2019 INFECTIOUS DISEASE CONSULTATION ATTENDING PHYSICIAN: Mason Bull MD REASON FOR EVALUATION: Left foot plantar ulcer complicated by infection, suspected deep-seated. HISTORY OF PRESENT ILLNESS: Chart reviewed, patient examined. This is a 58-year-old gentleman with known history of diabetes mellitus, has not been well controlled, who states he has had ongoing wound associated with his foot perhaps last several weeks. However, over the course of the last 2 weeks, it had increasingly become uncomfortable. There was associated systemic illness with fevers more recently, but did note some shaking chills as well. He noted he has not eaten in the last 4 days. Blood sugars have been markedly elevated in spite of taking insulin. It is notable that he has some degree of peripheral neuropathy. He has had a previous right second toe amputation due to an osteomyelitis episode involving that digit. Denies significant pulmonary or gastrointestinal related complaints. Started empirically on combination therapy with vancomycin and ceftriaxone. MRI is pending. X-ray did not show evidence of bony changes that would suggest chronic osteomyelitis. ALLERGIES: None known. CURRENT MEDICATIONS: Include amlodipine, fish oil, aspirin, lisinopril, ceftriaxone, vancomycin, pantoprazole, gabapentin, insulin glargine, atorvastatin, enoxaparin, insulin lispro, p.r.n. analgesics. PAST MEDICAL HISTORY: As noted above, diabetes mellitus complicated by peripheral neuropathy, has some vasculopathy with known atherosclerotic coronary artery disease, hypertension, knee amputation, right second toe. SOCIAL HISTORY: Fairly regular ethanol, former smoker. No illicit drug use. FAMILY HISTORY: [place] [address] CONSULTATION Name: ROXANNE BENAVIDEZ Room: [address] IN [facility]#: [id number] Admission: 03/24/19 Attend Phys: Mason Bull MD Discharge: Date of : 58 Report #: [id number] REVIEW OF SYSTEMS: As above, otherwise unremarkable 10-point review of systems. PHYSICAL EXAMINATION: GENERAL: He is alert, cooperative, in mild distress, appears to be reasonably well nourished. VITAL SIGNS: Temperature max 100.3, more recently 99.8, pulse 103, respirations 16, blood pressure 117/67. SKIN: Warm, dry, no rashes. HEENT: Normocephalic. Extraocular muscles intact. NECK: Supple. LUNGS: Generally clear to auscultation. HEART: Regular, tachycardic. I do not appreciate a murmur. ABDOMEN: Mildly distended, soft, nontender. EXTREMITIES: Left lower extremity has a dressing in place. There is clear malodor associated with it. Review of served pictures over the last several days clearly developed some subcutaneous purulence with a draining sinus tract over the site plantar aspect first and second MTP. GENITOURINARY AND RECTAL: Deferred. LABORATORY DATA: Blood cultures sterile thus far. Prealbumin low at 7.6. Electrolytes: Sodium 133, potassium 4.1, chloride 100, bicarbonate is 18, BUN and creatinine 34 and 1.8, anion gap of 15, glucose of 231. It was noted to be 409 on admission with creatinine of 2.0. CBC: White count of 16.5, H and H 9.3 and 27.6, platelets of 292. X-ray showed soft tissue swelling and soft tissue gas consistent with cellulitis. No definite evidence of osteomyelitis. Lactic acid 1.4. Troponin elevated at 0.12. ASSESSMENT AND PLAN: Left foot plantar deep-seated infection, likely abscess. MRI is pending, which ideally would be able to see extent of it. Podiatry has been consulted. I suspect they will need to do some intervention surgically. We will continue empiric therapy with antibiotics. I think the current regimen is reasonable. We will await culture results. Discuss with the patient and family in detail. <ELECTRONICALLY SIGNED> By: Erich Diamond MD 03/26/19 1159 1008 1215Erich Diamond MD /nt
[2019-03-26 12:00] VITALS: BP 130/67
[2019-03-26 16:00] VITALS: BP 140/60
[2019-03-26 19:20] VITALS: BP 123/92
[2019-03-27] VITALS: BP 142/68; BP 148/56
[2019-03-27 04:00] VITALS: BP 137/69
[2019-03-27 08:04] VITALS: BP 141/72
[2019-03-27 11:00] LABS: ABSOLUTE BASOPHILS 0.2 thou/uL (0.0-0.2); ABSOLUTE EOSINOPHILS 0.1 thou/uL (0.0-0.7); ABSOLUTE LYMPHOCYTES 1.5 thou/uL (0.8-5.3); ABSOLUTE MONOCYTES 0.8 thou/uL (0.0-1.2); ABSOLUTE NEUTROPHILS 9.9 thou/uL (1.6-8.1); BASOPHILS 1.2 %; EOSINOPHILS 0.9 %; HEMATOCRIT 26.3 % (42.0-52.0); HEMOGLOBIN 8.9 gm/dL (14.0-18.0); LYMPHOCYTES 11.7 %; MCH 28.7 pg (26.0-34.0); MCHC 33.7 g/dL (28.0-37.0); MCV 85.1 fL (80.0-100.0); MONOCYTES 6.3 %; MPV 9.7 fl. (7.2-11.1); NUCLEATED RBCS 0 /100WBC; PLATELET COUNT* 287 thou/uL (150-400); POLYS 79.9 %; RDW-CV 13.3 % (10.5-14.5); WBC 12.4 thou/uL (4.0-11.0)
[2019-03-27 11:21] LABS: CALCIUM 7.3 mg/dL (8.5-10.1); CREATININE 2.9 mg/dL (0.6-1.3); POTASSIUM 4.2 mmol/L (3.5-5.1); TOTAL BILIRUBIN 0.2 mg/dL (<0.1-1.0); TOTAL PROTEIN 5.5 g/dL (6.4-8.2)
[2019-03-27 12:13] VITALS: BP 139/68
[2019-03-27 17:57] VITALS: BP 131/63
[2019-03-27 20:00] VITALS: BP 124/56
[2019-03-28] VITALS: BP 121/86
[2019-03-28 04:00] VITALS: BP 168/95
[2019-03-28 08:00] VITALS: BP 175/79
[2019-03-28 09:40] LABS: ALBUMIN 2.1 g/dL (3.4-5.0); CALCIUM 7.3 mg/dL (8.5-10.1); CREATININE 2.8 mg/dL (0.6-1.3); POTASSIUM 4.8 mmol/L (3.5-5.1); TOTAL BILIRUBIN 0.4 mg/dL (<0.1-1.0); TOTAL PROTEIN 6.2 g/dL (6.4-8.2)
[2019-03-28 11:47] VITALS: BP 155/68
[2019-03-28 16:01] VITALS: BP 143/60
--- NOTE | 2019-03-28 17:07 | PATH ---
[address] [address] PATHOLOGY RPT PROCEDURE Name: ROXANNE BENAVIDEZ Room: [address] IN M.R.#: [id number] Admission: 03/24/19 Date of : 58 Discharge: Report #: [id number] Path Case #: [id number] LCA Accession Number: [id number] . 01 Material submitted: . toe - LEFT SECOND TOE. Modifiers: left, second . 01 Clinical history: . Abscess left foot . 02 Diagnosis: Left second toe: - Benign toe with extensive acute inflammation and necrosis of soft tissues, and with evidence of osteomyelitis, with disarticulation margin free of osteomyelitis. (YU:steven; 03/28/2019) MBR 03/28/2019 1548 Local . 02 Electronically signed: . Edgar Alarcon MD, Pathologist NPI- [id number] . 01 Gross description: . The specimen is received in formalin, labeled "Roxanne Benavidez, left second toe". Received is an amputated digit measuring 7.3 x 3.2 x 2.8 cm in greatest dimensions. The bone margin is smooth and concave in appearance, consistent with disarticulation. The bone and soft tissue margins are inked black. The soft tissue displays a dusky contreras-downing, slightly necrotic appearance. The nail is present displaying a pale downing and thickened appearance. The epidermal surface is pale downing and wrinkled in appearance with no grossly distinct nodules or lesions. A longitudinal cross-section through the bone margin is submitted in cassette A1, following decalcification. (CAA; 03/26/2019) QAC/QAC 03/28/2019 1547 Local . 02 Pathologist provided ICD-10: L98.9, I96, M86.172 . 02 CPT . 629663, 785775 Specimen Comment: A courtesy copy of this report has been sent to [phone] Specimen Comment: Report sent to Performed at: [address] [place] [id number] MD Samy Smith MD Phone: [phone] Performed at: 02 [place] [address] PATHOLOGY RPT PROCEDURE Name: ROXANNE BENAVIDEZ Room: [place] [address] ADM IN .R.#: [id number] Admission: 03/24/19 Date of : 58 Discharge: Report #: [id number] Path Case #: [id number] [facility] [address], [place] Ramírez [id number] MD Edgar Alarcon MD Phone: [phone]
[2019-03-28 20:00] VITALS: BP 135/56
[2019-03-29] VITALS: BP 149/62
[2019-03-29 03:55] VITALS: BP 146/61
[2019-03-29 08:24] VITALS: BP 160/70
[2019-03-29 16:03] VITALS: BP 153/70
[2019-03-30 08:45] VITALS: BP 158/61
[2019-03-30 14:34] LABS: URINE BILIRUBIN NEGATIVE (Negative); URINE BLOOD NEGATIVE (Negative); URINE CLARITY CLEAR; URINE COLOR YELLOW; URINE GLUCOSE-RANDOM NEGATIVE (Negative); URINE KETONES NEGATIVE (Negative); URINE LEUKOCYTES-REFLEX NEGATIVE (Negative); URINE NITRITE-REFLEX NEGATIVE (Negative); URINE PROTEIN NEGATIVE (Negative); URINE SPECIFIC GRAVITY 1.015 (1.005-1.030); URINE UROBILINOGEN 0.2 E.U./dl (0.2-1.0)
[2019-03-30 16:40] VITALS: BP 151/73
[2019-03-31] VITALS: BP 148/58
[2019-03-31 04:00] VITALS: BP 164/80
[2019-03-31 04:52] LABS: HEMATOCRIT 25.1 % (42.0-52.0); HEMOGLOBIN 8.5 gm/dL (14.0-18.0); MCH 28.5 pg (26.0-34.0); MCHC 33.9 g/dL (28.0-37.0); MPV 8.1 fl. (7.2-11.1); RBC 2.99 mil/uL (4.50-6.00); RDW-CV 13.2 % (10.5-14.5); WBC 10.7 thou/uL (4.0-11.0)
[2019-03-31 04:58] LABS: CALCIUM 7.9 mg/dL (8.5-10.1); CREATININE 2.3 mg/dL (0.6-1.3); MAGNESIUM 2.2 mg/dL (1.8-2.4)
[2019-03-31 09:00] VITALS: BP 160/71
[2019-03-31 15:00] VITALS: BP 163/80
[2019-03-31 19:45] VITALS: BP 164/74
[2019-04-01] VITALS: BP 154/97
[2019-04-01 03:56] VITALS: BP 158/59
[2019-04-01 05:05] LABS: HEMATOCRIT 23.8 % (42.0-52.0); MCH 28.5 pg (26.0-34.0); MCHC 33.7 g/dL (28.0-37.0); MCV 84.7 fL (80.0-100.0); MPV 8.1 fl. (7.2-11.1); RBC 2.81 mil/uL (4.50-6.00); RDW-CV 12.8 % (10.5-14.5); WBC 11.2 thou/uL (4.0-11.0)
[2019-04-01 05:41] LABS: ALBUMIN 1.8 g/dL (3.4-5.0); CALCIUM 7.6 mg/dL (8.5-10.1); CREATININE 2.2 mg/dL (0.6-1.3); POTASSIUM 4.7 mmol/L (3.5-5.1); TOTAL BILIRUBIN 0.3 mg/dL (<0.1-1.0); TOTAL PROTEIN 6.5 g/dL (6.4-8.2)
[2019-04-01 08:00] VITALS: BP 154/65
[2019-04-01 16:00] VITALS: BP 164/52
[2019-04-01 21:20] VITALS: BP 163/69
[2019-04-02 06:28] LABS: HEMATOCRIT 27.7 % (42.0-52.0); HEMOGLOBIN 9.5 gm/dL (14.0-18.0); MCH 28.9 pg (26.0-34.0); MCHC 34.2 g/dL (28.0-37.0); MCV 84.3 fL (80.0-100.0); MPV 7.7 fl. (7.2-11.1); NUCLEATED RBCS 0 /100WBC; RBC 3.29 mil/uL (4.50-6.00); RDW-CV 13.2 % (10.5-14.5)
[2019-04-02 06:35] LABS: PLATELET COUNT* 519 thou/uL (150-400)
[2019-04-02 06:45] LABS: ALBUMIN 1.7 g/dL (3.4-5.0); CALCIUM 7.7 mg/dL (8.5-10.1); CREATININE 2.3 mg/dL (0.6-1.3); MAGNESIUM 2.2 mg/dL (1.8-2.4); PHOSPHORUS* 4.6 mg/dL (2.5-4.9); POTASSIUM 4.4 mmol/L (3.5-5.1); TOTAL BILIRUBIN 0.2 mg/dL (<0.1-1.0); TOTAL PROTEIN 6.2 g/dL (6.4-8.2); URIC ACID* 6.2 mg/dL (2.6-7.2)
[2019-04-02 07:11] LABS: ABSOLUTE EOSINOPHILS 0.2 thou/uL (0.0-0.7); ABSOLUTE LYMPHOCYTES 1.3 thou/uL (0.8-5.3); ABSOLUTE MONOCYTES 0.3 thou/uL (0.0-1.2); ABSOLUTE NEUTROPHILS 6.2 thou/uL (1.6-8.1)
[2019-04-02 07:12] LABS: ANISOCYTOSIS 1+; LARGE PLATELETS OCCASIONAL; PLATELET ESTIMATE INCREASED; POIKILOCYTOSIS 1+
[2019-04-02 16:33] VITALS: BP 159/70
[2019-04-02 21:20] VITALS: BP 149/64
[2019-04-03 05:56] LABS: HEMATOCRIT 21.2 % (42.0-52.0); MCH 28.9 pg (26.0-34.0); MPV 7.8 fl. (7.2-11.1); RBC 2.5 mil/uL (4.50-6.00); WBC 9.7 thou/uL (4.0-11.0)
[2019-04-03 06:11] LABS: ALBUMIN 1.6 g/dL (3.4-5.0); CALCIUM 7.9 mg/dL (8.5-10.1); CREATININE 2.1 mg/dL (0.6-1.3); MAGNESIUM 2.4 mg/dL (1.8-2.4); POTASSIUM 4.4 mmol/L (3.5-5.1); TOTAL BILIRUBIN 0.2 mg/dL (<0.1-1.0); TOTAL PROTEIN 5.9 g/dL (6.4-8.2)
[2019-04-03 06:15] LABS: HEMOGLOBIN 7.2 gm/dL (14.0-18.0)
[2019-04-03 07:30] VITALS: BP 155/72
--- NOTE | 2019-04-03 09:24 | CON ---
[address] [address] CONSULTATION Name: ROXANNE BENAVIDEZ Room: [address] IN .R.#: [id number] Admission: 03/24/19 Attend Phys: Mason Bull MD Discharge: Date of : 58 Report #: [id number] THIS REPORT FOR: //name// cc: MELBA Rodriguez family physician/PCP MELBA Rodriguez family physician/PCP ~ THIS REPORT FOR: //name// CC: Mason REILLY physician/PCP DATE OF SERVICE: 03/31/2019 REQUESTING PHYSICIAN: Mason Bull MD REASON FOR CONSULTATION: Assist in controlling his blood pressure and follow on his renal insufficiency. HISTORY OF PRESENT ILLNESS: The patient is a 58-year-old male with medical history significant for peripheral artery disease, diabetes mellitus type 2, coronary artery disease, chronic kidney disease stage 3, presents with nonhealing diabetic foot. He has a left foot with chronic infection and was treated with antibiotics, but then today he is going to go to the surgery and they will do some debridement as necessary procedures. 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 His creatinine on admission was 2.0 and went up as high as 2.9, is down to 2.3 now. Baseline creatinine probably around 1.4-1.5. He also had a myocardial infarction during this admission and Cardiology was on the case. His blood pressure is not optimally controlled. Blood pressure in 160s-170s/70-80. PAST MEDICAL HISTORY: As I mentioned earlier. SOCIAL HISTORY: No alcohol abuse. He never smoked. MEDICATIONS: Reviewed. From my standpoint, he is on lisinopril 40 mg a day, amlodipine 10 mg a day. REVIEW OF SYSTEMS: Positive for this problem with his left foot nonhealing ulcer. Otherwise, he does not have any chest pain, no shortness of breath, no fever, no chills. He does have some pollakiuria and nocturia. He had a renal ultrasound done, which was unremarkable. [place] [address] CONSULTATION Name: ROXANNE BENAVIDEZ Room: [address]#: [id number] Admission: 03/24/19 Attend Phys: Mason Bull MD Discharge: Date of : 58 Report #: [id number] 03/24 was also unremarkable. PHYSICAL EXAMINATION: GENERAL: Awake, alert, oriented. VITAL SIGNS: Blood pressure 160/70, heart rate 84. He is afebrile. HEENT: Pupils are round. NECK: Supple. LUNGS: Clear. CARDIOVASCULAR: Regular rate. ABDOMEN: Soft. EXTREMITIES: Lower extremities, his left foot is swollen and dressed. ASSESSMENT: 1. Acute kidney injury, which is resolving now, probably due to his infection. 2. Chronic kidney disease stage 3. 3. Uncontrolled hypertension. 4. Coronary artery disease. 5. Diabetes mellitus type 2. PLAN: I will add Coreg 6.25 mg twice a day. Follow his labs and then he will need to follow with us after discharge. <ELECTRONICALLY SIGNED> By: Prince Zamora MD 04/03/19 0924 1238 1248Alexdane Zamora MD /nt
[2019-04-03 10:12] LABS: HEPATITIS B SURFACE AG Negative (Negative)
[2019-04-03 14:12] LABS: URINE PROTEIN (MG/DL) 22.4 mg/dL (Not Estab.)
[2019-04-03 14:12] LABS: GLOBULIN TOTAL 3.6 g/dL (2.2-3.9); M-SPIKE Not Observed g/dL (Not Observed)
[2019-04-03] MEDS ORDERED: HUMULIN N100 UNIT/1 SUBQ (15:43)
[2019-04-03] MEDS ORDERED: COREG6.25 MG PO (15:43)
[2019-04-03 16:05] VITALS: BP 145/79
[2019-04-03 16:29] VITALS: BP 145/79
[2019-04-03 17:23] VITALS: BP 145/79
[2019-04-03 19:35] VITALS: BP 145/79
--- NOTE | 2019-04-04 16:07 | PATH ---
[address] [address] PATHOLOGY RPT PROCEDURE Name: ROXANNE BENAVIDEZ Room: [address] IN M.R.#: [id number] Admission: 03/24/19 Date of : 58 Discharge: 04/03/19 Report #: [id number] Path Case #: [id number] LCA Accession Number: [id number] . 01 Material submitted: . toe - LEFT SECOND METATARSAL/LEFT THIRD TOE. Modifiers: left, second, third . 01 Clinical history: . Osteomyelitis left second metatarsal . 02 Diagnosis: Left second metatarsal, left third toe: - Left third toe: Benign toe with extensive necrosis and acute inflammation of soft tissues (at surgical margin) and with osteomyelitis, with disarticulation margin free of osteomyelitis. See comment. . - Left second metatarsal: Two benign osteocartilaginous segments with shorter segment showing no osteomyelitis and longer segment having attached acutely inflamed soft tissues with medial calcification of blood vessels and osteomyelitis from articular end to very close but no definite involvement of opposite transection edge with osteomyelitis. (YU:pit 04/04/2019) QTP 04/04/2019 1535 Local . 02 Comment: The grossly described "blue-contreras lesion" seen adjacent to the left third toenail represents a benign hemorrhagic inflammatory crust. (YU:[facility] 04/04/2019) . 02 Electronically signed: . Edgar Alarcon MD, Pathologist NPI- [id number] . 01 Gross description: . The specimen is received in formalin, labeled "Roxanne Benavidez, left second metatarsal, left third toe". Received is an amputated digit measuring 6.1 x 3.0 x 2.1 cm in greatest dimensions. The bone margin is smooth and concave in appearance, consistent with disarticulation. The bone and soft tissue margins are inked black. The epidermal surface displays a dusky contreras-black necrotic-appearing area at the skin margin measuring 3.2 x 0.7 cm. The nail is present displaying a light downing and thickened appearance. At the distal aspect of the specimen adjacent to the nail, there is a well-circumscribed, slightly raised and blue-contreras lesion measuring 0.3 x 0.3 cm. A full length longitudinal cross-section is submitted from proximal to distal aspects in cassettes A1 through A3, [place] [address] PATHOLOGY RPT PROCEDURE Name: ROXANNE BENAVIDEZ Room: [address] IN .R.#: [id number] Admission: 03/24/19 Date of : 58 Discharge: 04/03/19 Report #: [id number] Path Case #: [id number] Also received within the specimen container are two additional segments of bone measuring 3.1 x 2.6 x 1.9 and 5.7 x 2.1 x 1.7 cm in greatest dimensions. The smaller segment displays one blunt, transected margin and one smooth, disarticulated margin. The disarticulated margin is inked black. The larger segment displays one blunt, transected margin and one smooth, disarticulated to jagged margin. The transected margin on this segment is inked blue. The specimen is submitted player services representative as follows: . A4-A5 full-thickness longitudinal cross-section of smaller segment, submitted from disarticulated to transected aspects, following decalcification A6-A8 full-thickness longitudinal cross-section of larger segment submitted from transected to disarticulated aspects, following decalcification. (CAA; 04/01/2019) QAC/QAC 04/01/2019 1633 Local . 02 Pathologist provided ICD-10: M86.8X7, I96 . 02 CPT . 921855, 483664, 952694 Specimen Comment: A courtesy copy of this report has been sent to [phone] Specimen Comment: [phone] Specimen Comment: Report sent to / DR BRO Performed at: 01 [facility] [address], [place], [place] [id number] MD Samy Smith MD Phone: [phone] Performed at: 02 [facility] [address], [place], [place] [id number] MD Edgar Alarcon MD Phone: [phone]
== END 2019-04-03 18:45 | disposition home or self-care (01) | DRG 853 ==
LOC: M.ERS 16:14 → M.TBA-ER 18:47 → M.2W 18:47 → M.ORTHSURG 03-29 18:13
PROVIDERS: Internal Medicine; Internal Medicine Nephrology; Nurse Practitioner Family; Specialist; ADMIT Internal Medicine
PROC: 0Y6S0Z0 Detachment at Left 2nd Toe, Complete, Open Approach (ICD-10-PCS; principal; 2019-03-25)
PROC: 05HY33Z Insertion of Infusion Device into Upper Vein, Percutaneous Approach (ICD-10-PCS; 2019-03-28)
PROC: B54NZZA Ultrasonography of Left Upper Extremity Veins, Guidance (ICD-10-PCS; 2019-03-28)
PROC: 0Y6N0Z5 Detachment at Left Foot, Complete 2nd Ray, Open Approach (ICD-10-PCS; 2019-03-31)
PROC: 0Y6U0Z0 Detachment at Left 3rd Toe, Complete, Open Approach (ICD-10-PCS; 2019-03-31)
DX: A41.9 Sepsis, unspecified organism (principal); I21.A1 Myocardial infarction type 2; N17.9 Acute kidney failure, unspecified; M86.8X7 Other osteomyelitis, ankle and foot; L03.116 Cellulitis of left lower limb; I13.0 Hypertensive heart and chronic kidney disease with heart failure and stage 1 through stage 4 chronic kidney disease, or unspecified chronic kidney disease; I50.32 Chronic diastolic (congestive) heart failure; I25.10 Atherosclerotic heart disease of native coronary artery without angina pectoris; R65.20 Severe sepsis without septic shock; E11.42 Type 2 diabetes mellitus with diabetic polyneuropathy; E11.69 Type 2 diabetes mellitus with other specified complication; E11.51 Type 2 diabetes mellitus with diabetic peripheral angiopathy without gangrene; N18.3 Chronic kidney disease, stage 3 (moderate); E11.22 Type 2 diabetes mellitus with diabetic chronic kidney disease; E11.621 Type 2 diabetes mellitus with foot ulcer; L97.529 Non-pressure chronic ulcer of other part of left foot with unspecified severity; E78.5 Hyperlipidemia, unspecified; E11.65 Type 2 diabetes mellitus with hyperglycemia; Z79.899 Other long term (current) drug therapy; Z79.82 Long term (current) use of aspirin; Z79.4 Long term (current) use of insulin; Z87.891 Personal history of nicotine dependence; Z63.5 Disruption of family by separation and divorce; Z82.49 Family history of ischemic heart disease and other diseases of the circulatory system; Z89.421 Acquired absence of other right toe(s); I25.2 Old myocardial infarction; Z83.3 Family history of diabetes mellitus

== ENCOUNTER 2019-04-04 11:35 | Inpatient (IN) | payer OTHER ==
[~2019-04-04] VITALS: Ht 180.3 cm; Wt 106.6 kg
[~2019-04-04 11:35] MED LIST changes: +COREG6.25 MG PO; +HUMULIN N100 UNIT/1 SUBQ
[2019-04-04 11:42] VITALS: BP 173/87
[2019-04-04 12:16] LABS: BE -4.8 mmol/L (-2 to +3); PCO2 29.8 mmHg (35.0-45.0)
[2019-04-04 12:18] LABS: ABSOLUTE EOSINOPHILS 0.2 thou/uL (0.0-0.7); ABSOLUTE LYMPHOCYTES 1.3 thou/uL (0.8-5.3); ABSOLUTE MONOCYTES 0.6 thou/uL (0.0-1.2); ABSOLUTE NEUTROPHILS 11.4 thou/uL (1.6-8.1); BASOPHILS 0.2 %; EOSINOPHILS 1.7 %; HEMATOCRIT 24.2 % (42.0-52.0); HEMOGLOBIN 7.9 gm/dL (14.0-18.0); LYMPHOCYTES 9.9 %; MCH 28.2 pg (26.0-34.0); MCHC 32.8 g/dL (28.0-37.0); MONOCYTES 4.6 %; MPV 7.4 fl. (7.2-11.1); NUCLEATED RBCS 0 /100WBC; POLYS 83.6 %; RBC 2.82 mil/uL (4.50-6.00); RDW-CV 13.1 % (10.5-14.5); WBC 13.6 thou/uL (4.0-11.0)
[2019-04-04 12:18] LABS: PO2 41.6 mmHg (75.0-100.0)
[2019-04-04 12:20] LABS: INFLUENZA A ANTIGEN Negative (Negative); INFLUENZA B ANTIGEN Negative (Negative)
[2019-04-04 12:20] LABS: PLATELET COUNT* 779 thou/uL (150-400)
[2019-04-04 12:29] LABS: CALCIUM 8.2 mg/dL (8.5-10.1); POTASSIUM 4.8 mmol/L (3.5-5.1)
[2019-04-04 12:39] LABS: ALBUMIN 1.9 g/dL (3.4-5.0); TOTAL BILIRUBIN 0.2 mg/dL (<0.1-1.0); TOTAL PROTEIN 6.9 g/dL (6.4-8.2)
[2019-04-04 14:58] LABS: URINE BILIRUBIN NEGATIVE (Negative); URINE BLOOD TRACE (Negative); URINE CLARITY CLEAR; URINE COLOR YELLOW; URINE GLUCOSE-RANDOM NEGATIVE (Negative); URINE KETONES NEGATIVE (Negative); URINE LEUKOCYTES-REFLEX NEGATIVE (Negative); URINE NITRITE-REFLEX NEGATIVE (Negative); URINE PROTEIN NEGATIVE (Negative); URINE UROBILINOGEN 0.2 E.U./dl (0.2-1.0)
--- NOTE | 2019-04-04 16:29 | 2DMMODE ---
[facility] [place] [address] 2 D/M-MODE ECHOCARDIOGRAM Name: REEMAROXANNE E Room: [place] [address] ADM IN .R.#: [id number] Admission: 04/04/19 Attend Phys: James Tapia, Discharge: Date of : 58 Date of Service: 04/04/19 1627 Report #: [id number] THIS REPORT FOR: cc: Samy Luis Russell J. DO Liston, Michael J. MD [facility] ~ APPROVED REPORT Study performed: 04/04/2019 15:38:49 EXAM: Limited 2D Echocardiogram Patient Location: In-Patient Room #: er BSA: 2.11 HR: 97 bpm BP: 161/69 mmHg Rhythm: NSR Other Information Study Quality: Good Indications Dyspnea Left Ventricle The left ventricle is normal size. There is normal LV segmental wall motion. There is normal left ventricular wall thickness. The left ventricular systolic function is normal. LVEF is 60-65%. Right Ventricle The right ventricle is normal size. The right ventricular systolic function is normal. Atria The left atrium size is normal. The right atrium size is normal. Aortic Valve The aortic valve is normal in structure. Mitral Valve The mitral valve is normal in structure. Tricuspid Valve [address] [address] 2 D/M-MODE ECHOCARDIOGRAM Name: ROXANNE BENAVIDEZ Room: [place] [address] ADM IN M.R.#: [id number] Admission: 04/04/19 Attend Phys: James Tapia, Discharge: Date of : 58 Date of Service: 04/04/19 1627 Report #: [id number] The tricuspid valve is normal in structure. Pulmonic Valve The pulmonary valve is normal in structure. Great Vessels The aortic root is normal in size. IVC is normal in size and collapses >50% with inspiration. Pericardium There is no pericardial effusion. <Conclusion> The left ventricle is normal size. There is normal left ventricular wall thickness. The left ventricular systolic function is normal. LVEF is 60-65%. IVC is normal in size and collapses >50% with inspiration. There is no pericardial effusion. <ELECTRONICALLY SIGNED> By: Mikie Kathleen MD, FACC 04/04/19 1627 26 26 Mikie Kathleen MD, FACC /INF
[2019-04-04 16:32] VITALS: BP 150/80
[2019-04-04 17:02] VITALS: BP 177/75
[2019-04-04 20:10] VITALS: BP 143/88
[2019-04-04 23:56] VITALS: BP 147/76
[2019-04-05] VITALS (7 sets, daily range): BP systolic 120–175; BP diastolic 56–84
[2019-04-05 06:59] LABS: HEMATOCRIT 22.9 % (42.0-52.0); HEMOGLOBIN 7.5 gm/dL (14.0-18.0); MCH 27.9 pg (26.0-34.0); MCHC 32.9 g/dL (28.0-37.0); MCV 84.8 fL (80.0-100.0); MPV 7.9 fl. (7.2-11.1); RBC 2.7 mil/uL (4.50-6.00); RDW-CV 13.3 % (10.5-14.5)
[2019-04-05 07:06] LABS: CREATININE 2.1 mg/dL (0.6-1.3); POTASSIUM 4.9 mmol/L (3.5-5.1)
[2019-04-06 08:30] VITALS: BP 160/71
[2019-04-06 12:23] LABS: ABSOLUTE BASOPHILS 0.1 thou/uL (0.0-0.2); ABSOLUTE EOSINOPHILS 0.2 thou/uL (0.0-0.7); ABSOLUTE LYMPHOCYTES 1.1 thou/uL (0.8-5.3); ABSOLUTE MONOCYTES 0.5 thou/uL (0.0-1.2); ABSOLUTE NEUTROPHILS 9.4 thou/uL (1.6-8.1); BASOPHILS 1.1 %; HEMATOCRIT 21.7 % (42.0-52.0); HEMOGLOBIN 7.1 gm/dL (14.0-18.0); LYMPHOCYTES 9.8 %; MCH 27.9 pg (26.0-34.0); MCHC 32.8 g/dL (28.0-37.0); MCV 85.1 fL (80.0-100.0); MONOCYTES 4.8 %; MPV 7.9 fl. (7.2-11.1); NUCLEATED RBCS 0 /100WBC; POLYS 82.3 %; RBC 2.54 mil/uL (4.50-6.00); RDW-CV 13.1 % (10.5-14.5); WBC 11.4 thou/uL (4.0-11.0)
[2019-04-06 12:31] LABS: PLATELET COUNT* 609 thou/uL (150-400)
[2019-04-06 15:01] VITALS: BP 133/67
[2019-04-06 17:00] VITALS: BP 137/65
[2019-04-06 20:30] VITALS: BP 143/61
[2019-04-07 00:54] VITALS: BP 144/70
[2019-04-07 06:21] LABS: HEMATOCRIT 20.7 % (42.0-52.0); MCHC 33.2 g/dL (28.0-37.0); MCV 84.5 fL (80.0-100.0); MPV 7.7 fl. (7.2-11.1); RBC 2.45 mil/uL (4.50-6.00); RDW-CV 13.2 % (10.5-14.5)
[2019-04-07 06:24] LABS: HEMOGLOBIN 6.9 gm/dL (14.0-18.0)
[2019-04-07 06:28] LABS: CALCIUM 7.7 mg/dL (8.5-10.1); CREATININE 2.4 mg/dL (0.6-1.3); MAGNESIUM 2.2 mg/dL (1.8-2.4); POTASSIUM 4.5 mmol/L (3.5-5.1)
[2019-04-07 08:15] VITALS: BP 149/67
[2019-04-07 08:53] VITALS: BP 152/74; BP 155/75; BP 162/76; BP 184/86
[2019-04-07 15:25] VITALS: BP 152/72
[2019-04-07 16:00] VITALS: BP 160/74
[2019-04-07 18:34] LABS: HEMATOCRIT 25.4 % (42.0-52.0); HEMOGLOBIN 8.5 gm/dL (14.0-18.0)
[2019-04-07 20:30] VITALS: BP 157/71
[2019-04-08 06:49] LABS: HEMATOCRIT 23.8 % (42.0-52.0); HEMOGLOBIN 7.9 gm/dL (14.0-18.0); MCH 27.6 pg (26.0-34.0); MCHC 33.1 g/dL (28.0-37.0); MCV 83.4 fL (80.0-100.0); RBC 2.86 mil/uL (4.50-6.00); RDW-CV 13.2 % (10.5-14.5); WBC 11.8 thou/uL (4.0-11.0)
[2019-04-08 07:16] LABS: CREATININE 2.1 mg/dL (0.6-1.3); POTASSIUM 3.9 mmol/L (3.5-5.1)
[2019-04-08 07:45] VITALS: BP 160/61
[2019-04-08 15:45] VITALS: BP 118/67
[2019-04-08 19:20] VITALS: BP 142/60
[2019-04-09 03:33] LABS: HEMATOCRIT 23.7 % (42.0-52.0); MCH 28.2 pg (26.0-34.0); MCHC 33.6 g/dL (28.0-37.0); MCV 83.7 fL (80.0-100.0); MPV 7.9 fl. (7.2-11.1); RBC 2.83 mil/uL (4.50-6.00); RDW-CV 13.2 % (10.5-14.5); WBC 8.3 thou/uL (4.0-11.0)
[2019-04-09 03:50] LABS: CALCIUM 7.9 mg/dL (8.5-10.1); CREATININE 2.1 mg/dL (0.6-1.3); MAGNESIUM 1.7 mg/dL (1.8-2.4); POTASSIUM 3.7 mmol/L (3.5-5.1)
[2019-04-09 07:20] VITALS: BP 154/73
--- NOTE | 2019-04-09 13:43 | CON ---
[address] [address] CONSULTATION Name: ROXANNE BENAVIDEZ Room: [address] IN .R.#: [id number] Admission: 04/04/19 Attend Phys: James Tapia MD Discharge: Date of : 58 Report #: [id number] THIS REPORT FOR: //name// cc: Samy Luis Russell J. DO ~ THIS REPORT FOR: //name// CC: James Luis DATE OF SERVICE: 04/08/2019 CHIEF COMPLAINT: Postoperative left foot for resection, left second metatarsal for osteomyelitis, readmitted for pneumonia. He received blood transfusion yesterday. Denies pain to the foot. Currently nauseous with dry heaves. He has been afebrile. He is on parenteral cefepime and Flagyl. LABORATORY DATA: WBC 11.8, RBC 2.86, hemoglobin 7.9, hematocrit 23.8 and platelets 556. BUN 28, creatinine 2.1 and glucose 169. PHYSICAL EXAMINATION: EXTREMITIES: Left foot has no inflammation or signs of cellulitis. The wound has sparse granulation with some fibrous slough. The foot is warm with no pallor, cyanosis or signs of acute vascular embarrassment; overall improved. IMPRESSION: Osteomyelitis, deep tissue infection, type 2 diabetes mellitus, pneumonia. PLAN: I cleansed the wound and repacked with Aquacel Ag and covered with ABDs, Kerlix and Larry bandage. We will inquire about placing a wound VAC during his hospitalization here to facilitate granulation. <ELECTRONICALLY SIGNED> By: Fer Sequeira DPM 04/09/19 1343 0743 0751Disabel Sequeira DPM /nt
[2019-04-09 16:00] VITALS: BP 130/52
[2019-04-09 20:00] VITALS: BP 150/68
[2019-04-10 05:30] LABS: CALCIUM 8.2 mg/dL (8.5-10.1); MAGNESIUM 1.8 mg/dL (1.8-2.4); POTASSIUM 3.7 mmol/L (3.5-5.1)
[2019-04-10 09:00] VITALS: BP 152/72
[2019-04-10] MEDS ORDERED: CARVEDILOL12.5 MG PO (10:00)
[2019-04-10] MEDS ORDERED: LASIX 40 MG TAB40 M1 PO (10:00)
[2019-04-10] MEDS ORDERED: NOVOLIN N100 UNIT/3 SUBQ (10:00)
[2019-04-10 11:19] VITALS: BP 152/72
[2019-04-10 15:38] VITALS: BP 152/72
[2019-04-10] MEDS ORDERED: CEFTRIAXONE2 G1 IVPB (15:40)
--- NOTE | 2019-04-11 14:58 | EKG ---
[place] [address] ELECTROCARDIOGRAM REPORT Name: ROXANNE BENAVIDEZ Room: [address] IN [facility]#: [id number] Admission: 04/04/19 Attend Phys: James Tapia, Discharge: 04/10/19 Date of : 58 Date of Service: 04/04/19 1201 Report #: [id number] THIS REPORT FOR: //name// [facility] ED Test Date: 2019-04-04 Test Time: 12:01:14 Pat Name: ROXANNEHUGH BENAVIDEZ Department: Room: [facility] Gender: M Maid Housekeeper: RICARDO : 1960 Requested By: Maggy Fernandes Order Number: [id number] MD: Benoit Swain Measurements Intervals [place] Rate: 98 P: 38 DE: 159 QRS: 30 QRSD: 91 T: 12 QT: 339 QTc: 433 Interpretive Statements Sinus rhythm Probable left atrial enlargement Baseline wander in lead(s) II,III,aVF Compared to ECG 03/24/2019 18:34:33 Sinus tachycardia no longer present Electronically Signed On 04-05-2019 12:50:53 [employer]ANSFORMER [employer] by Benoit Swain [email or web address] <ELECTRONICALLY SIGNED> By: Benoit Swain MD, FACC 04/05/19 1250 1201 1201 Benoit Swain MD, FAC /EPI
== END 2019-04-10 16:45 | disposition home or self-care (01) | DRG 871 ==
LOC: M.ERS 11:35 → M.TBA-ER 12:51 → M.2W 12:51 → M.3W 04-07 08:16
PROVIDERS: Physician Assistant; ADMIT Internal Medicine
PROC: 02H633Z Insertion of Infusion Device into Right Atrium, Percutaneous Approach (ICD-10-PCS; principal; 2019-04-04)
PROC: 30233N1 Transfusion of Nonautologous Red Blood Cells into Peripheral Vein, Percutaneous Approach (ICD-10-PCS; 2019-04-07)
DX: A41.9 Sepsis, unspecified organism (principal); J96.01 Acute respiratory failure with hypoxia; E43 Unspecified severe protein-calorie malnutrition; J15.6 Pneumonia due to other Gram-negative bacteria; M86.8X8 Other osteomyelitis, other site; D62 Acute posthemorrhagic anemia; I25.10 Atherosclerotic heart disease of native coronary artery without angina pectoris; N18.3 Chronic kidney disease, stage 3 (moderate); E11.621 Type 2 diabetes mellitus with foot ulcer; Y95 Nosocomial condition; T50.905A Adverse effect of unspecified drugs, medicaments and biological substances, initial encounter; E87.70 Fluid overload, unspecified; E11.69 Type 2 diabetes mellitus with other specified complication; Z87.891 Personal history of nicotine dependence; E11.51 Type 2 diabetes mellitus with diabetic peripheral angiopathy without gangrene; Z83.3 Family history of diabetes mellitus; Z68.32 Body mass index [BMI] 32.0-32.9, adult; Z79.82 Long term (current) use of aspirin; Z79.899 Other long term (current) drug therapy; Y92.89 Other specified places as the place of occurrence of the external cause; I12.9 Hypertensive chronic kidney disease with stage 1 through stage 4 chronic kidney disease, or unspecified chronic kidney disease

== ENCOUNTER → 2019-04-11 | Outpatient (CLI) | payer OTHER ==
[~2019-04-11] MED LIST changes: +CARVEDILOL12.5 MG PO; +CEFTRIAXONE2 G1 IVPB; +LASIX 40 MG TAB40 M1 PO; +NOVOLIN N100 UNIT/3 SUBQ
[2019-04-11 10:15] VITALS: BP 132/78
== END ==
LOC: M.INFUS 10:00
DX: L08.9 Local infection of the skin and subcutaneous tissue, unspecified (principal)

== ENCOUNTER → 2019-04-12 | Outpatient (CLI) | payer OTHER | LOC: M.INFUS 08:00 | DX: L08.9 Local infection of the skin and subcutaneous tissue, unspecified (principal) ==

== ENCOUNTER → 2019-04-13 | Outpatient (CLI) | payer OTHER | LOC: M.INFUS 08:00 | DX: L08.9 Local infection of the skin and subcutaneous tissue, unspecified (principal) ==

== ENCOUNTER → 2019-04-14 | Outpatient (CLI) | payer OTHER ==
[2019-04-14 14:00] VITALS: BP 145/70
== END ==
LOC: M.INFUS 01:06
DX: L08.9 Local infection of the skin and subcutaneous tissue, unspecified (principal)

== ENCOUNTER → 2019-04-15 | Outpatient (CLI) | payer OTHER ==
[2019-04-15 13:50] VITALS: BP 142/72
== END ==
LOC: M.INFUS 04:47
DX: L08.9 Local infection of the skin and subcutaneous tissue, unspecified (principal)

== ENCOUNTER → 2019-04-16 | Outpatient (CLI) | payer OTHER | LOC: M.INFUS 04:48 | DX: L08.9 Local infection of the skin and subcutaneous tissue, unspecified (principal) ==

== ENCOUNTER → 2019-04-17 | Outpatient (CLI) | payer OTHER ==
[2019-04-17 12:10] VITALS: BP 144/64
[2019-04-17 14:23] LABS: HEMATOCRIT 26.3 % (42.0-52.0); HEMOGLOBIN 8.9 gm/dL (14.0-18.0); MCH 28.2 pg (26.0-34.0); MCHC 33.8 g/dL (28.0-37.0); MCV 83.3 fL (80.0-100.0); MPV 8.3 fl. (7.2-11.1); RBC 3.15 mil/uL (4.50-6.00); RDW-CV 12.9 % (10.5-14.5); WBC 6.1 thou/uL (4.0-11.0)
[2019-04-17 14:33] LABS: ALBUMIN 2.7 g/dL (3.4-5.0); CALCIUM 8.7 mg/dL (8.5-10.1); CREATININE 2.2 mg/dL (0.6-1.3); POTASSIUM 4.7 mmol/L (3.5-5.1); TOTAL BILIRUBIN 0.3 mg/dL (<0.1-1.0); TOTAL PROTEIN 7.7 g/dL (6.4-8.2)
== END ==
LOC: M.INFUS 06:02
PROVIDERS: Specialist
DX: L08.9 Local infection of the skin and subcutaneous tissue, unspecified (principal)

== ENCOUNTER → 2019-04-18 | Outpatient (CLI) | payer OTHER ==
[2019-04-18 13:05] VITALS: BP 132/80
== END ==
LOC: M.INFUS 01:57
DX: L08.9 Local infection of the skin and subcutaneous tissue, unspecified (principal)

== ENCOUNTER → 2019-04-19 | Outpatient (CLI) | payer OTHER | LOC: M.INFUS 08:00 | DX: L08.9 Local infection of the skin and subcutaneous tissue, unspecified (principal) ==

== ENCOUNTER → 2019-04-20 | Outpatient (CLI) | payer OTHER | LOC: M.INFUS 08:00 | DX: L08.9 Local infection of the skin and subcutaneous tissue, unspecified (principal) ==

== ENCOUNTER → 2019-04-21 | Outpatient (CLI) | payer OTHER ==
[2019-04-21 08:45] VITALS: BP 156/71
[2019-04-21 09:00] VITALS: BP 156/75
[2019-04-21 10:45] VITALS: BP 148/72
--- NOTE | 2019-04-25 07:36 | CON ---
[address] [address] CONSULTATION Name: REEMAROXANNE E Room: [facility] Clarissa#: [id number] Admission: 04/21/19 Attend Phys: Erich Diamond MD Discharge: Date of : 58 Report #: [id number] THIS REPORT FOR: //name// cc: Samy Luis Russell J. DO ~ THIS REPORT FOR: //name// CC: Erich Luis DATE OF SERVICE: 04/21/2019 INFECTIOUS DISEASE CONSULTATION FOLLOWUP The patient is seen in the outpatient fusion area. ATTENDING PHYSICIAN: Dr. Luis REASON FOR EVALUATION: Followup of chronic osteomyelitis post-extensive surgery involving his foot. He is undergoing on treatment with IV antibiotics and on ceftriaxone that is completed, I believe, 3 weeks total. Generally, he has been doing fairly well from a subjective standpoint. He denies any systemic illness. He has not had significant pain or discomfort. He apparently had been seen by Dr. Sequeira who was a little concerned about the appearance of the tissue in the wound site. There is question of possible additional surgical intervention. I did review the labs and nothing remarkable. ASSESSMENT AND PLAN: Chronic osteomyelitis at this point. We will continue the ceftriaxone at least 1 additional week. We will see him in followup in the outpatient infusion area next Sunday and continue to offload the site. Wound care as prescribed by Dr. Sequeira. Optimize his nutritional status. <ELECTRONICALLY SIGNED> By: Erich Diamond MD 04/25/19 0736 1308 1319Josearam Diamond MD /nt
== END ==
LOC: M.INFUS 02:02
DX: L08.9 Local infection of the skin and subcutaneous tissue, unspecified (principal)

== ENCOUNTER → 2019-04-22 | Outpatient (CLI) | payer OTHER ==
[2019-04-22 09:00] VITALS: BP 128/83
[2019-04-22 09:53] VITALS: BP 120/78
== END ==
LOC: M.INFUS 03:52
DX: L08.9 Local infection of the skin and subcutaneous tissue, unspecified (principal)

== ENCOUNTER → 2019-04-23 | Outpatient (CLI) | payer OTHER ==
[2019-04-23 09:00] VITALS: BP 155/70
[2019-04-23 09:40] VITALS: BP 148/72
== END ==
LOC: M.INFUS 04:21
DX: L08.9 Local infection of the skin and subcutaneous tissue, unspecified (principal)

== ENCOUNTER → 2019-04-24 | Outpatient (CLI) | payer OTHER ==
[2019-04-24 09:10] VITALS: BP 157/75
[2019-04-24 10:03] VITALS: BP 148/76
[2019-04-24 10:25] LABS: ABSOLUTE BASOPHILS 0.1 thou/uL (0.0-0.2); ABSOLUTE EOSINOPHILS 0.4 thou/uL (0.0-0.7); ABSOLUTE LYMPHOCYTES 1.6 thou/uL (0.8-5.3); ABSOLUTE MONOCYTES 0.5 thou/uL (0.0-1.2); ABSOLUTE NEUTROPHILS 4.4 thou/uL (1.6-8.1); BASOPHILS 1.2 %; EOSINOPHILS 6.3 %; HEMOGLOBIN 8.7 gm/dL (14.0-18.0); LYMPHOCYTES 22.2 %; MCH 27.8 pg (26.0-34.0); MCHC 33.3 g/dL (28.0-37.0); MCV 83.5 fL (80.0-100.0); MONOCYTES 7.4 %; MPV 8.5 fl. (7.2-11.1); NUCLEATED RBCS 0 /100WBC; PLATELET COUNT* 314 thou/uL (150-400); POLYS 62.9 %; RBC 3.12 mil/uL (4.50-6.00); RDW-CV 13.6 % (10.5-14.5); WBC 7.1 thou/uL (4.0-11.0)
[2019-04-24 10:38] LABS: ALBUMIN 2.8 g/dL (3.4-5.0); CALCIUM 8.3 mg/dL (8.5-10.1); POTASSIUM 4.7 mmol/L (3.5-5.1); TOTAL BILIRUBIN 0.3 mg/dL (<0.1-1.0); TOTAL PROTEIN 7.5 g/dL (6.4-8.2)
[2019-04-24 11:41] LABS: ESR (SEDRATE) 55 mm/hr (0-20)
== END ==
LOC: M.INFUS 03:59
PROVIDERS: Specialist
DX: L08.9 Local infection of the skin and subcutaneous tissue, unspecified (principal)

== ENCOUNTER → 2019-04-26 | Outpatient (CLI) | payer OTHER | LOC: M.INFUS 02:28 | DX: L08.9 Local infection of the skin and subcutaneous tissue, unspecified (principal) ==

== ENCOUNTER → 2019-04-27 | Outpatient (CLI) | payer OTHER | LOC: M.INFUS 08:00 | DX: L08.9 Local infection of the skin and subcutaneous tissue, unspecified (principal) ==

== ENCOUNTER → 2019-04-28 | Outpatient (CLI) | payer OTHER ==
[2019-04-28 09:35] VITALS: BP 132/75
--- NOTE | 2019-04-28 11:51 | NUR ---
INFUSION COMPLETED AND TOLERATED WELL. DR. SAM HERE AND PT SEEN. NEW ORDER RECIEVED TO CONTINUE INFUSION FOR 1 MORE WEEK.
--- NOTE | 2019-04-30 10:45 | CON ---
[address] [address] CONSULTATION Name: REEMAROXANNE E Room: [facility] Clarissa#: [id number] Admission: 04/28/19 Attend Phys: Erich Diamond MD Discharge: Date of : 58 Report #: [id number] THIS REPORT FOR: //name// cc: Samy Luis Russell J. DO ~ THIS REPORT FOR: //name// CC: Erich Luis DATE OF SERVICE: 04/28/2019 HISTORY OF PRESENT ILLNESS: The patient is seen in the outpatient infusion area. He is on ongoing treatment for chronic osteomyelitis involving his foot, exposed amputation with metatarsal resection. At this point, he is roughly 5 weeks post. He has had 2 surgeries as well. Currently, he has been feeling well. Denies significant amount of pain or discomfort. He has not been systemically ill. ASSESSMENT AND PLAN: Chronic osteomyelitis. At this point, we would extend the antibiotics, likely just one more week. We will see him in followup in the infusion area. Discussed with Dr. Sequeira. He is to call if problems or concerns. <ELECTRONICALLY SIGNED> By: Erich Diamond MD 04/30/19 1045 [id number] Diamond MD /nt
== END ==
LOC: M.INFUS 03:08
DX: M86.672 Other chronic osteomyelitis, left ankle and foot (principal)

== ENCOUNTER → 2019-04-29 | Outpatient (CLI) | payer OTHER ==
[2019-04-29 08:45] VITALS: BP 132/75
== END ==
LOC: M.INFUS 04:25
DX: L08.9 Local infection of the skin and subcutaneous tissue, unspecified (principal)

== ENCOUNTER → 2019-04-30 | Outpatient (CLI) | payer OTHER ==
[2019-04-30 08:45] VITALS: BP 160/71
== END ==
LOC: M.INFUS 03:45
DX: L08.9 Local infection of the skin and subcutaneous tissue, unspecified (principal)

== ENCOUNTER → 2019-05-01 | Outpatient (CLI) | payer OTHER ==
[2019-05-01 09:20] VITALS: BP 145/74
[2019-05-01 10:55] LABS: HEMATOCRIT 26.7 % (42.0-52.0); MCH 28.2 pg (26.0-34.0); MCHC 33.6 g/dL (28.0-37.0); MCV 84.1 fL (80.0-100.0); MPV 8.6 fl. (7.2-11.1); RBC 3.17 mil/uL (4.50-6.00); WBC 7.3 thou/uL (4.0-11.0)
[2019-05-01 11:12] LABS: ALBUMIN 3.1 g/dL (3.4-5.0); CALCIUM 8.2 mg/dL (8.5-10.1); CREATININE 2.1 mg/dL (0.6-1.3); POTASSIUM 5.1 mmol/L (3.5-5.1); TOTAL BILIRUBIN 0.3 mg/dL (<0.1-1.0); TOTAL PROTEIN 7.6 g/dL (6.4-8.2)
== END ==
LOC: M.INFUS 02:47
PROVIDERS: Specialist
DX: L08.9 Local infection of the skin and subcutaneous tissue, unspecified (principal)

== ENCOUNTER → 2019-05-02 | Outpatient (CLI) | payer OTHER ==
[2019-05-02 08:50] VITALS: BP 148/73
== END ==
LOC: M.INFUS 02:31
DX: L08.9 Local infection of the skin and subcutaneous tissue, unspecified (principal)

== ENCOUNTER → 2019-05-03 | Outpatient (CLI) | payer OTHER | LOC: M.INFUS 08:00 | DX: L08.9 Local infection of the skin and subcutaneous tissue, unspecified (principal) ==

== ENCOUNTER → 2019-05-04 | Outpatient (CLI) | payer OTHER | LOC: M.INFUS 08:00 | DX: L08.9 Local infection of the skin and subcutaneous tissue, unspecified (principal) ==

== ENCOUNTER → 2019-05-05 | Outpatient (CLI) | payer OTHER ==
[2019-05-05 08:48] VITALS: BP 150/65
--- NOTE | 2019-05-05 09:53 | NUR ---
ARRIVED AMBULATORY. MADE SELF COMFORTABLE IN RECLINER. INFUSION COMPLETED AND TOLERATED WELL. DR. SAM IN CLINIC AND PT SEEN. NEW ORDER RECIEVED TO D/C IV ATIBIOTIC AFTER TODAY'S DOSE AND REMOVE PICC LINE. SCRIPT FOR CIPRO 250MG PO BID GIVEN TO PT PER DR. SAM. PICC LINE REMOVED PER PROTOCOL. DENIES QUESTION OR NEED AT DISCHARGE.
--- NOTE | 2019-05-06 08:08 | CON ---
[address] [address] CONSULTATION Name: REEMAROXANNE E Room: [facility] Clarissa.#: [id number] Admission: 05/05/19 Attend Phys: Erich Diamond MD Discharge: Date of : 58 Report #: [id number] THIS REPORT FOR: //name// cc: Samy Luis Russell J. DO ~ THIS REPORT FOR: //name// CC: Erich Luis DATE OF SERVICE: 05/05/2019 INFECTIOUS DISEASE CONSULTATION FOLLOWUP HISTORY OF PRESENT ILLNESS: He is seen in the outpatient infusion area. The patient returns today in followup, having completed roughly 6 weeks of parenteral therapy for osteomyelitis involving his foot. He underwent 2 operative debridements including osteoectomy. He has been on therapy over the course of about 6 weeks. Generally, he has been doing fairly well. Denies any systemic illness. He has been seen and followed up by Dr. Sequeira who felt that he is relatively stable. Review of cultures does show still mildly elevated sed rate to 50, although this has been coming down. ASSESSMENT AND PLAN: Chronic osteomyelitis. At this point, it is reasonable to transition to oral antibiotics based on susceptibilities. Utilize Cipro to low MICs to the Escherichia coli. I plan on additional 2 weeks. He is to follow up in the interim with Dr. Sequeira, go ahead and remove the PICC line. He is to call if problems. <ELECTRONICALLY SIGNED> By: Erich Diamond MD 05/06/19 [id number] Diamond MD /nt
== END ==
LOC: M.INFUS 04:29
DX: L08.9 Local infection of the skin and subcutaneous tissue, unspecified (principal)

== ENCOUNTER → 2019-06-11 | Outpatient (CLI) | payer MEDICAID | LOC: M.WC 12:39 | DX: T81.89XD Other complications of procedures, not elsewhere classified, subsequent encounter (principal); E11.621 Type 2 diabetes mellitus with foot ulcer; L97.522 Non-pressure chronic ulcer of other part of left foot with fat layer exposed; L84 Corns and callosities; E11.42 Type 2 diabetes mellitus with diabetic polyneuropathy; E11.36 Type 2 diabetes mellitus with diabetic cataract; E11.69 Type 2 diabetes mellitus with other specified complication; M86.8X8 Other osteomyelitis, other site; I25.10 Atherosclerotic heart disease of native coronary artery without angina pectoris; I10 Essential (primary) hypertension; Z87.891 Personal history of nicotine dependence; Z89.421 Acquired absence of other right toe(s); Z89.422 Acquired absence of other left toe(s); Z79.4 Long term (current) use of insulin; Z79.82 Long term (current) use of aspirin; Y83.8 Other surgical procedures as the cause of abnormal reaction of the patient, or of later complication, without mention of misadventure at the time of the procedure ==

== ENCOUNTER → 2019-06-18 | Outpatient (CLI) | payer MEDICAID | LOC: M.WC 02:42 | DX: E11.621 Type 2 diabetes mellitus with foot ulcer (principal); L97.522 Non-pressure chronic ulcer of other part of left foot with fat layer exposed; L84 Corns and callosities; E11.40 Type 2 diabetes mellitus with diabetic neuropathy, unspecified; E11.69 Type 2 diabetes mellitus with other specified complication; M86.8X8 Other osteomyelitis, other site; E11.36 Type 2 diabetes mellitus with diabetic cataract; I25.10 Atherosclerotic heart disease of native coronary artery without angina pectoris; I10 Essential (primary) hypertension; Z87.891 Personal history of nicotine dependence ==

== ENCOUNTER → 2019-06-25 | Outpatient (CLI) | payer MEDICAID | LOC: M.WC 01:43 | DX: T87.89 Other complications of amputation stump (principal); E11.621 Type 2 diabetes mellitus with foot ulcer; L97.522 Non-pressure chronic ulcer of other part of left foot with fat layer exposed; L84 Corns and callosities; E11.42 Type 2 diabetes mellitus with diabetic polyneuropathy; E11.69 Type 2 diabetes mellitus with other specified complication; M86.8X7 Other osteomyelitis, ankle and foot; E11.36 Type 2 diabetes mellitus with diabetic cataract; I25.10 Atherosclerotic heart disease of native coronary artery without angina pectoris; I10 Essential (primary) hypertension; Z87.891 Personal history of nicotine dependence; Y83.5 Amputation of limb(s) as the cause of abnormal reaction of the patient, or of later complication, without mention of misadventure at the time of the procedure ==

== ENCOUNTER → 2019-07-02 | Outpatient (CLI) | payer MEDICAID | LOC: M.WC 04:11 | DX: T87.89 Other complications of amputation stump (principal); E11.621 Type 2 diabetes mellitus with foot ulcer; L97.522 Non-pressure chronic ulcer of other part of left foot with fat layer exposed; L84 Corns and callosities; E11.40 Type 2 diabetes mellitus with diabetic neuropathy, unspecified; E11.69 Type 2 diabetes mellitus with other specified complication; M86.172 Other acute osteomyelitis, left ankle and foot; I10 Essential (primary) hypertension; I25.10 Atherosclerotic heart disease of native coronary artery without angina pectoris; E11.36 Type 2 diabetes mellitus with diabetic cataract; Z87.891 Personal history of nicotine dependence; Z79.4 Long term (current) use of insulin; Z79.82 Long term (current) use of aspirin; Y83.5 Amputation of limb(s) as the cause of abnormal reaction of the patient, or of later complication, without mention of misadventure at the time of the procedure ==

== ENCOUNTER → 2019-07-09 | Outpatient (CLI) | payer MEDICAID | LOC: M.WC 04:44 | DX: T81.89XD Other complications of procedures, not elsewhere classified, subsequent encounter (principal); E11.621 Type 2 diabetes mellitus with foot ulcer; L97.522 Non-pressure chronic ulcer of other part of left foot with fat layer exposed; L84 Corns and callosities; E11.40 Type 2 diabetes mellitus with diabetic neuropathy, unspecified; Z87.891 Personal history of nicotine dependence; Y83.8 Other surgical procedures as the cause of abnormal reaction of the patient, or of later complication, without mention of misadventure at the time of the procedure ==

== ENCOUNTER → 2019-07-16 | Outpatient (CLI) | payer MEDICAID | LOC: M.WC 04:21 | PROVIDERS: ATTEND Podiatrist Foot & Ankle Surgery | DX: T87.89 Other complications of amputation stump (principal); E11.621 Type 2 diabetes mellitus with foot ulcer; L97.522 Non-pressure chronic ulcer of other part of left foot with fat layer exposed; L84 Corns and callosities; E11.69 Type 2 diabetes mellitus with other specified complication; M86.8X8 Other osteomyelitis, other site; E11.36 Type 2 diabetes mellitus with diabetic cataract; E11.40 Type 2 diabetes mellitus with diabetic neuropathy, unspecified; I25.10 Atherosclerotic heart disease of native coronary artery without angina pectoris; I10 Essential (primary) hypertension; Z87.891 Personal history of nicotine dependence; Y83.5 Amputation of limb(s) as the cause of abnormal reaction of the patient, or of later complication, without mention of misadventure at the time of the procedure ==

== ENCOUNTER → 2019-07-23 | Outpatient (CLI) | payer MEDICAID | LOC: M.WC 04:50 | PROVIDERS: ATTEND Podiatrist Foot & Ankle Surgery | DX: T87.89 Other complications of amputation stump (principal); E11.621 Type 2 diabetes mellitus with foot ulcer; L97.522 Non-pressure chronic ulcer of other part of left foot with fat layer exposed; E11.40 Type 2 diabetes mellitus with diabetic neuropathy, unspecified; L84 Corns and callosities; I25.10 Atherosclerotic heart disease of native coronary artery without angina pectoris; I10 Essential (primary) hypertension; E11.69 Type 2 diabetes mellitus with other specified complication; M86.9 Osteomyelitis, unspecified; E11.36 Type 2 diabetes mellitus with diabetic cataract; Z87.891 Personal history of nicotine dependence; Z79.4 Long term (current) use of insulin; Z79.82 Long term (current) use of aspirin; Y83.5 Amputation of limb(s) as the cause of abnormal reaction of the patient, or of later complication, without mention of misadventure at the time of the procedure ==

== ENCOUNTER → 2019-07-30 | Outpatient (CLI) | payer MEDICAID | LOC: M.WC 03:19 | PROVIDERS: ATTEND Podiatrist Foot & Ankle Surgery | DX: T87.89 Other complications of amputation stump (principal); E11.621 Type 2 diabetes mellitus with foot ulcer; L97.522 Non-pressure chronic ulcer of other part of left foot with fat layer exposed; L84 Corns and callosities; E11.40 Type 2 diabetes mellitus with diabetic neuropathy, unspecified; E11.69 Type 2 diabetes mellitus with other specified complication; M86.8X7 Other osteomyelitis, ankle and foot; E11.36 Type 2 diabetes mellitus with diabetic cataract; I25.10 Atherosclerotic heart disease of native coronary artery without angina pectoris; I10 Essential (primary) hypertension; Z87.891 Personal history of nicotine dependence; Y83.5 Amputation of limb(s) as the cause of abnormal reaction of the patient, or of later complication, without mention of misadventure at the time of the procedure ==

== ENCOUNTER → 2019-08-06 | Outpatient (CLI) | payer MEDICAID | LOC: M.WC 03:29 | PROVIDERS: ATTEND Podiatrist Foot & Ankle Surgery | DX: T87.89 Other complications of amputation stump (principal); E11.621 Type 2 diabetes mellitus with foot ulcer; L97.522 Non-pressure chronic ulcer of other part of left foot with fat layer exposed; L84 Corns and callosities; E11.69 Type 2 diabetes mellitus with other specified complication; M86.8X8 Other osteomyelitis, other site; E11.36 Type 2 diabetes mellitus with diabetic cataract; E11.42 Type 2 diabetes mellitus with diabetic polyneuropathy; I25.10 Atherosclerotic heart disease of native coronary artery without angina pectoris; I10 Essential (primary) hypertension; Z87.891 Personal history of nicotine dependence; Y83.5 Amputation of limb(s) as the cause of abnormal reaction of the patient, or of later complication, without mention of misadventure at the time of the procedure ==

== ENCOUNTER → 2019-08-13 | Outpatient (CLI) | payer MEDICAID | LOC: M.WC 05:50 | PROVIDERS: ATTEND Podiatrist Foot & Ankle Surgery | DX: T87.89 Other complications of amputation stump (principal); E11.621 Type 2 diabetes mellitus with foot ulcer; L97.526 Non-pressure chronic ulcer of other part of left foot with bone involvement without evidence of necrosis; L84 Corns and callosities; E11.36 Type 2 diabetes mellitus with diabetic cataract; E11.69 Type 2 diabetes mellitus with other specified complication; M86.8X8 Other osteomyelitis, other site; E11.42 Type 2 diabetes mellitus with diabetic polyneuropathy; I25.10 Atherosclerotic heart disease of native coronary artery without angina pectoris; I10 Essential (primary) hypertension; Z87.891 Personal history of nicotine dependence; Y83.5 Amputation of limb(s) as the cause of abnormal reaction of the patient, or of later complication, without mention of misadventure at the time of the procedure ==

== ENCOUNTER → 2019-08-20 | Outpatient (CLI) | payer MEDICAID | LOC: M.WC 03:45 | PROVIDERS: ATTEND Podiatrist Foot & Ankle Surgery | DX: E11.621 Type 2 diabetes mellitus with foot ulcer (principal); L97.526 Non-pressure chronic ulcer of other part of left foot with bone involvement without evidence of necrosis; L84 Corns and callosities; E11.40 Type 2 diabetes mellitus with diabetic neuropathy, unspecified; E11.36 Type 2 diabetes mellitus with diabetic cataract; E11.69 Type 2 diabetes mellitus with other specified complication; M86.8X8 Other osteomyelitis, other site; I25.10 Atherosclerotic heart disease of native coronary artery without angina pectoris; I10 Essential (primary) hypertension; Z89.421 Acquired absence of other right toe(s); Z87.891 Personal history of nicotine dependence ==

== ENCOUNTER → 2019-08-27 | Outpatient (CLI) | payer MEDICAID | LOC: M.WC 05:15 | PROVIDERS: ATTEND Podiatrist Foot & Ankle Surgery | DX: T87.89 Other complications of amputation stump (principal); E11.621 Type 2 diabetes mellitus with foot ulcer; L97.526 Non-pressure chronic ulcer of other part of left foot with bone involvement without evidence of necrosis; L84 Corns and callosities; E11.40 Type 2 diabetes mellitus with diabetic neuropathy, unspecified; E11.69 Type 2 diabetes mellitus with other specified complication; M86.8X8 Other osteomyelitis, other site; E11.36 Type 2 diabetes mellitus with diabetic cataract; I25.10 Atherosclerotic heart disease of native coronary artery without angina pectoris; I10 Essential (primary) hypertension; Z87.891 Personal history of nicotine dependence; Y83.5 Amputation of limb(s) as the cause of abnormal reaction of the patient, or of later complication, without mention of misadventure at the time of the procedure ==

== ENCOUNTER → 2019-09-10 | Outpatient (CLI) | payer MEDICAID | LOC: M.WC 04:28 | PROVIDERS: ATTEND Family Medicine | DX: T87.89 Other complications of amputation stump (principal); E11.621 Type 2 diabetes mellitus with foot ulcer; L97.526 Non-pressure chronic ulcer of other part of left foot with bone involvement without evidence of necrosis; L84 Corns and callosities; E11.40 Type 2 diabetes mellitus with diabetic neuropathy, unspecified; E11.36 Type 2 diabetes mellitus with diabetic cataract; E11.69 Type 2 diabetes mellitus with other specified complication; M86.8X8 Other osteomyelitis, other site; I25.10 Atherosclerotic heart disease of native coronary artery without angina pectoris; I10 Essential (primary) hypertension; Z87.891 Personal history of nicotine dependence; Y83.5 Amputation of limb(s) as the cause of abnormal reaction of the patient, or of later complication, without mention of misadventure at the time of the procedure ==

== ENCOUNTER → 2019-09-24 | Outpatient (CLI) | payer MEDICAID | LOC: M.WC 03:18 | PROVIDERS: ATTEND Podiatrist Foot & Ankle Surgery | DX: T87.89 Other complications of amputation stump (principal); E11.621 Type 2 diabetes mellitus with foot ulcer; L97.426 Non-pressure chronic ulcer of left heel and midfoot with bone involvement without evidence of necrosis; L84 Corns and callosities; E11.40 Type 2 diabetes mellitus with diabetic neuropathy, unspecified; E11.69 Type 2 diabetes mellitus with other specified complication; M86.8X8 Other osteomyelitis, other site; E11.36 Type 2 diabetes mellitus with diabetic cataract; I25.10 Atherosclerotic heart disease of native coronary artery without angina pectoris; I10 Essential (primary) hypertension; Z87.891 Personal history of nicotine dependence; Y83.5 Amputation of limb(s) as the cause of abnormal reaction of the patient, or of later complication, without mention of misadventure at the time of the procedure ==

== ENCOUNTER → 2019-10-08 | Outpatient (CLI) | payer MEDICAID | LOC: M.WC 04:36 | PROVIDERS: ATTEND Podiatrist Foot & Ankle Surgery | DX: E11.621 Type 2 diabetes mellitus with foot ulcer (principal); L97.522 Non-pressure chronic ulcer of other part of left foot with fat layer exposed; L84 Corns and callosities; E11.40 Type 2 diabetes mellitus with diabetic neuropathy, unspecified; E11.69 Type 2 diabetes mellitus with other specified complication; M86.8X8 Other osteomyelitis, other site; E11.36 Type 2 diabetes mellitus with diabetic cataract; I25.10 Atherosclerotic heart disease of native coronary artery without angina pectoris; I10 Essential (primary) hypertension; Z87.891 Personal history of nicotine dependence ==

== ENCOUNTER → 2019-10-29 | Outpatient (CLI) | payer MEDICAID | LOC: M.WC 14:00 | PROVIDERS: ATTEND Podiatrist Foot & Ankle Surgery | DX: E11.621 Type 2 diabetes mellitus with foot ulcer (principal); L97.522 Non-pressure chronic ulcer of other part of left foot with fat layer exposed; L84 Corns and callosities; E11.40 Type 2 diabetes mellitus with diabetic neuropathy, unspecified; E11.69 Type 2 diabetes mellitus with other specified complication; M86.8X8 Other osteomyelitis, other site; E11.36 Type 2 diabetes mellitus with diabetic cataract; I25.10 Atherosclerotic heart disease of native coronary artery without angina pectoris; I10 Essential (primary) hypertension; Z87.891 Personal history of nicotine dependence ==

== ENCOUNTER → 2019-11-12 | Outpatient (CLI) | payer MEDICAID | LOC: M.WC 05:06 | PROVIDERS: ATTEND Podiatrist Foot & Ankle Surgery | DX: E11.621 Type 2 diabetes mellitus with foot ulcer (principal); L97.522 Non-pressure chronic ulcer of other part of left foot with fat layer exposed; L84 Corns and callosities; E11.40 Type 2 diabetes mellitus with diabetic neuropathy, unspecified; E11.69 Type 2 diabetes mellitus with other specified complication; M86.8X8 Other osteomyelitis, other site; E11.36 Type 2 diabetes mellitus with diabetic cataract; I25.10 Atherosclerotic heart disease of native coronary artery without angina pectoris; I10 Essential (primary) hypertension; M20.5X9 Other deformities of toe(s) (acquired), unspecified foot; Z87.891 Personal history of nicotine dependence ==

== ENCOUNTER → 2019-11-26 | Outpatient (CLI) | payer MEDICAID | LOC: M.WC 09:43 | PROVIDERS: ATTEND Podiatrist Foot & Ankle Surgery | DX: E11.621 Type 2 diabetes mellitus with foot ulcer (principal); L97.522 Non-pressure chronic ulcer of other part of left foot with fat layer exposed; L84 Corns and callosities; E11.40 Type 2 diabetes mellitus with diabetic neuropathy, unspecified; E11.69 Type 2 diabetes mellitus with other specified complication; M86.8X7 Other osteomyelitis, ankle and foot; E11.36 Type 2 diabetes mellitus with diabetic cataract; I25.10 Atherosclerotic heart disease of native coronary artery without angina pectoris; I10 Essential (primary) hypertension; M20.5X9 Other deformities of toe(s) (acquired), unspecified foot; Z87.891 Personal history of nicotine dependence ==

== ENCOUNTER → 2019-12-10 | Outpatient (CLI) | payer MEDICAID | LOC: M.WC 08:26 | PROVIDERS: ATTEND Podiatrist Foot & Ankle Surgery | DX: E11.621 Type 2 diabetes mellitus with foot ulcer (principal); L97.522 Non-pressure chronic ulcer of other part of left foot with fat layer exposed; L84 Corns and callosities; E11.42 Type 2 diabetes mellitus with diabetic polyneuropathy; E11.69 Type 2 diabetes mellitus with other specified complication; M86.8X7 Other osteomyelitis, ankle and foot; E11.36 Type 2 diabetes mellitus with diabetic cataract; I25.10 Atherosclerotic heart disease of native coronary artery without angina pectoris; I10 Essential (primary) hypertension; Z87.891 Personal history of nicotine dependence; Z89.422 Acquired absence of other left toe(s) ==